=== PATIENT | male | born 1960 | race Caucasian/White ===

== ENCOUNTER 2017-07-09 08:06 | Emergency (ER) | payer MEDICAID, SELFPAY ==
[2017-07-09 08:06] VITALS: BP 118/74; PULSE 95; RESP 20; O2SAT 99
[2017-07-09 08:07] VITALS: BMI 25.0
--- NOTE | 2017-07-09 08:09 | XR_ITS ---
XR chest portable HISTORY: Chest pain, tobacco abuse ITS.REASON: cp ORDERING PHYSICIAN: Noe Diaz MD PATIENT AGE: 57 years COMPARISON: 01/14/2017 FINDINGS: Unremarkable cardiovascular structures. Coronary artery stent is present on the right. There is coarsening of the bronchovascular markings with slightly elevated left hemidiaphragm. Slight increased density is present in the lung bases slightly greater on the left. Cannot exclude infiltrate in the left lung base. Upper lobes are clear. No acute bony anomalies. IMPRESSION: 1. Chronic coarsening of bronchovascular markings consistent with smoking-related lung disease. 2. Possible left lower lobe infiltrate or atelectasis
[2017-07-09 08:10] VITALS: BP 123/92; PULSE 65; RESP 18; TEMP 36.8; O2SAT 98; BMI 26.9
--- NOTE | 2017-07-09 08:16 | HMH.EDCP ---
ED Disposition Clinical Impression: Chest pain Qualifiers: Chest pain type: precordial pain Qualified Code(s): R07.2 - Precordial pain Disposition: Left Against Medical Advice Condition on Discharge: Good Referrals: Laquita Yousif MD [Primary Care Provider] - - Critical Care Critical Care Time: No Attestation: On , the high probability of a clinically significant, sudden or life threatening deterioration of the following system(s) required my full and direct attention, intervention and personal management. The time I documented below is in addition to time spent performing reported procedures but includes the following listed in this critical care notation. Medical Decision Making - Medical Records Medical records reviewed: Yes: I reviewed the patient's medical records. Vital Signs: 07/09/17 08:06 07/09/17 08:10 07/09/17 08:27 Temperature 98.3 F Temperature Source Oral Pulse Rate Pulse Rate [Right Brachial] 95 H 65 66 Respiratory Rate 20 18 18 Blood Pressure Blood Pressure [Right Arm] 118/74 123/92 139/90 Blood Pressure Mean [Right Arm] 88 102 106 Blood Pressure Source Blood Pressure Source [Right Arm] Automatic Cuff Automatic Cuff Automatic Cuff Blood Pressure Position Blood Pressure Position [Right Arm] Supine Right Lateral Sitting 02 Sat by Pulse Oximetry 99 98 100 Oxygen Delivery Method Room Air Room Air Room Air 07/09/17 12:06 Temperature 98.1 F Temperature Source Pulse Rate 79 Pulse Rate [Right Brachial] Respiratory Rate 18 Blood Pressure 122/80 Blood Pressure [Right Arm] Blood Pressure Mean [Right Arm] Blood Pressure Source Automatic Cuff Blood Pressure Source [Right Arm] Blood Pressure Position Sitting Blood Pressure Position [Right Arm] 02 Sat by Pulse Oximetry Oxygen Delivery Method Room Air - Lab Data Lab Results 07/09/17 08:20: WBC 8.8, RBC 4.60, Hgb 14.3, Hct 43.3, MCV 94.1 H, MCH 31.0, MCHC 33.0, RDW 13.0, Plt Count 268, MPV 7.9, Neut % (Auto) 63.8, Lymph % (Auto) 28.6, [place] % (Auto) 4.1, Eos % (Auto) 2.6, Baso % (Auto) 0.9, Neut # (Auto) 5.6, Lymph # (Auto) 2.5, [place] # (Auto) 0.4, Eos # (Auto) 0.2, Baso # (Auto) 0.1 07/09/17 08:20: Sodium 138, Potassium 3.9, Chloride 104, Carbon Dioxide 26, Anion Gap 11.9, BUN 8, Creatinine 0.89, Estimated Creat Clear 106, Estimated GFR 89, Est GFR ( Amer) 107, Glucose 101, Calcium 8.3 L, Total Bilirubin 0.3, AST 12 L, ALT 25, Alkaline Phosphatase 101, Total Creatine Kinase 92, CK-MB (CK-2) 0.8, CK-MB (CK-2) Rel Index 0.9, Troponin I < 0.02, Total Protein 7.6, Albumin 3.6, Globulin 4.0 H, Albumin/Globulin Ratio 0.9 L, TSH 1.51 07/09/17 08:20: B-Natriuretic Peptide 12 Result diagrams: 07/09/17 08:20 07/09/17 08:20 Orders (Tests/Meds): ED MEDICATIONS Discontinued Medications Generic Name Dose Route Start Last Admin Trade Name Freq PRN Reason Stop Dose Admin Aspirin 324 mg 07/09/17 08:24 07/09/17 08:26 Aspirin 81mg Chewable Tablet PO 07/09/17 08:25 324 mg ONCE ONE Administration Diphenhydramine HCl 50 mg 07/09/17 11:44 Benadryl 50mg/1ml Vial IV 07/09/17 11:45 ONCE ONE Fentanyl Citrate 50 mcg 07/09/17 11:44 Fentanyl 100mcg/2ml Vial IV 07/10/17 11:44 Q3MINP PRN Moderate to Severe Pain Fentanyl Citrate 25 mcg 07/09/17 11:44 Fentanyl 100mcg/2ml Vial IV 07/10/17 11:44 Q3MINP PRN Moderate to Severe Pain Flumazenil 0.2 mg 07/09/17 11:44 Romazicon 0.1mg/Ml 5ml Vial IV 07/09/17 23:00 NEEDED PRN Sedation Heparin Sodium (Porcine) 10,000 unit 07/09/17 11:44 Heparin 1,000 Units/Ml 10ml Vial (Heel Finisher) IV 07/09/17 15:44 NEEDED PRN 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
[2017-07-09 08:27] VITALS: BP 139/90; PULSE 66; RESP 18; O2SAT 100
--- NOTE | 2017-07-09 08:29 | PC.NURSE ---
pt hypotensive, giving IV bolus at this time. When bp stabilizes, morphine will be given.
[2017-07-09 08:43] LABS: Basophils # 0.1 K/mm3 (0-0.2); Basophils % 0.9 % (0.1-2.0); Eosinophils # 0.2 K/mm3 (0.0-0.4); Eosinophils % 2.6 % (0.1-12.0); Hematocrit 43.3 % (42.0-52.0); Hemoglobin 14.3 g/dL (14.1-18.0); Lymphocytes # 2.5 K/mm3 (0.7-4.5); Lymphocytes % 28.6 K/mm3 (10-50); Mean Corpuscular Volume 94.1 fl (80-94); Mean Platelet Volume 7.9 fl (7.4-10.4); Monocytes # 0.4 K/mm3 (0.1-1.0); Monocytes % 4.1 % (1.7-9.3); Neutrophils # 5.6 K/mm3 (1.8-7.8); Neutrophils % 63.8 % (37.0-80.0); Platelet Count 268 K/mm3 (142-424); White Blood Count 8.8 K/mm3 (4.8-10.8)
[2017-07-09 09:06] LABS: Alanine Aminotransferase 25 U/L (12-78); Albumin Level 3.6 gm/dL (3.4-5.0); Albumin/Globulin Ratio 0.9 (1.1-1.8); Alkaline Phosphatase 101 U/L (46-116); Anion Gap 11.9 mEq/L (5-15); Aspartate Amino Transferase 12 U/L (15-37); Bilirubin,Total 0.3 mg/dL (0.2-1.0); Blood Urea Nitrogen 8 mg/dL (7-18); CKMB Relative Index 0.9 U/L (0-4.0); Calcium 8.3 mg/dL (8.5-10.1); Carbon Dioxide 26 mmol/L (21.0-32.0); Chloride 104 mmol/L (98-107); Creatine Kinase 92 U/L (39-308); Creatine Kinase MB 0.8 mg/ml (0.0-3.6); Creatinine Clearance Estimated 106 mL/min (0-300); Creatinine,Serum 0.89 mg/dL (0.70-1.30); Estimated Glomerular Filt Rate 89 ml/min (>60); GFR (African American) 107 ML/MIN (>60); Glucose 101 mg/dL (74-106); Potassium 3.9 mmoL/L (3.5-5.1); Sodium 138 mmol/L (136-145); Thyroid Stimulating Hormone 1.51 uIU/ml (0.358-3.740); Total Protein,Serum 7.6 gm/dL (6.4-8.2); Troponin I < 0.02 ng/ml (0.00-0.06)
--- NOTE | 2017-07-09 10:29 | HMH.CARDCON2 ---
History of Present Illness Consult date: 07/09/17 Consult reason: chest pain Chief complaint: chest pain History of present illness: 57-year-old white male with history of coronary artery disease and multiple stents placed last year and continued tobacco use presented to the emergency department today for recurrent episodes of substernal chest burning sensation with radiation into the neck. Symptoms may come on both with activity and at rest and resolve after 1-2 minutes. No radiation of symptoms into the arm. Questionable difficulty swallowing recently. EKG is sinus without any acute change. Initial troponins have returned normal. Cardiology consulted for evaluation. Of note, patient's symptoms prior to his coronary stenting last year did not involve chest pain but rather upper back and neck discomfort the patient does have some chronic neck pain. Review of Systems - *Cardiovascular Reports chest pain - *Respiratory Reports shortness of breath with activity - *Gastrointestinal Reports heartburn - *Genitourinary Comments: Isolated episode of blood in the urine 2-3 weeks ago no recurrence. Patient has a history of kidney stones but he relates no discomfort to suggest that at that point. - *Neurologic Denies numbness, Denies weakness [facility] History Medical History: Reports:: Coronary Artery Disease, Hyperlipidemia, Hypertension Other Surgeries: Yes: Other ([facility]) - *Social History Educational Level: Completed High School Smoking Status: Current every day smoker Tobacco Type: cigarettes # Packs/Day (cigarettes): 2 Alcohol Intake: never - Psychiatric History Expresses thoughts of harming self/others: None Suicide Plan Description: No Plan *Family Hx:: Diabetes, Coronary Artery Disease Meds Home Medications Medication Instructions Recorded Confirmed Type aspirin 81 mg tablet,delayed 81 mg PO ONCE 06/21/17 07/09/17 History release atorvastatin 80 mg tablet 80 mg PO ONCE 06/21/17 07/09/17 History carvedilol 3.125 mg tablet 3.125 mg PO BID 06/21/17 07/09/17 History clopidogrel 75 mg tablet 75 mg PO ONCE 06/21/17 07/09/17 History lisinopril 5 mg tablet 5 mg PO ONCE 06/21/17 07/09/17 History Allergies Allergy/AdvReac Type Severity Reaction Status Date / Time No Known Allergies Allergy Verified 07/09/17 08:07 Exam Vital signs and Labs for Last 24 Hours: Temp Pulse Resp BP Pulse Ox 98.3 F 66 18 139/90 100 07/09/17 08:10 07/09/17 08:27 07/09/17 08:27 07/09/17 08:27 07/09/17 08:27 Laboratory Results - last 24 hr 07/09/17 08:20: WBC 8.8, RBC 4.60, Hgb 14.3, Hct 43.3, MCV 94.1 H, MCH 31.0, MCHC 33.0, RDW 13.0, Plt Count 268, MPV 7.9, Neut % (Auto) 63.8, Lymph % (Auto) 28.6, [place] % (Auto) 4.1, Eos % (Auto) 2.6, Baso % (Auto) 0.9, Neut # (Auto) 5.6, Lymph # (Auto) 2.5, [place] # (Auto) 0.4, Eos # (Auto) 0.2, Baso # (Auto) 0.1 07/09/17 08:20: Sodium 138, Potassium 3.9, Chloride 104, Carbon Dioxide 26, Anion Gap 11.9, BUN 8, Creatinine 0.89, Estimated Creat Clear 106, Estimated GFR 89, Est GFR ( Amer) 107, Glucose 101, Calcium 8.3 L, Total Bilirubin 0.3, AST 12 L, ALT 25, Alkaline Phosphatase 101, Total Creatine Kinase 92, CK-MB (CK-2) 0.8, CK-MB (CK-2) Rel Index 0.9, Troponin I < 0.02, Total Protein 7.6, Albumin 3.6, Globulin 4.0 H, Albumin/Globulin Ratio 0.9 L, TSH 1.51 07/09/17 08:20: B-Natriuretic Peptide 12 I & O for Last 24 hours: Intake & Output 07/06/17 07/07/17 07/08/17 07/09/17 11:59 11:59 11:59 11:59 Weight 177 lb - *Routine Neck Exam Absent: JVD, carotid bruit - *Routine Respiratory Exam Present: CTA bilaterally - *Routine Cardiovascular Exam Present: RRR. Absent: murmur, gallop, rubs - *Routine Extremities Exam Absent: edema - *Routine Neurological Exam Present: alert, oriented X3, moving all extremities Results 07/09/17 08:20 07/09/17 08:20 Cardiac Enzymes 07/09/17 07/09/17 Range/Units 08:20 08:20 AST 12 L
--- NOTE | 2017-07-09 10:32 | P.CONS_ITS ---
History of Present Illness Consult date: 07/09/17 Consult reason: chest pain Chief complaint: chest pain History of present illness: 57-year-old white male with history of coronary artery disease and multiple stents placed last year and continued tobacco use presented to the emergency department today for recurrent episodes of substernal chest burning sensation with radiation into the neck. Symptoms may come on both with activity and at rest and resolve after 1-2 minutes. No radiation of symptoms into the arm. Questionable difficulty swallowing recently. EKG is sinus without any acute change. Initial troponins have returned normal. Cardiology consulted for evaluation. Of note, patient's symptoms prior to his coronary stenting last year did not involve chest pain but rather upper back and neck discomfort the patient does have some chronic neck pain. Review of Systems - *Cardiovascular Reports chest pain - *Respiratory Reports shortness of breath with activity - *Gastrointestinal Reports heartburn - *Genitourinary Comments: Isolated episode of blood in the urine 2-3 weeks ago no recurrence. Patient has a history of kidney stones but he relates no discomfort to suggest that at that point. - *Neurologic Denies numbness, Denies weakness [facility] History Medical History: Reports:: Coronary Artery Disease, Hyperlipidemia, Hypertension Other Surgeries: Yes: Other ([facility]) - *Social History Educational Level: Completed High School Smoking Status: Current every day smoker Tobacco Type: cigarettes # Packs/Day (cigarettes): 2 Alcohol Intake: never - Psychiatric History Expresses thoughts of harming self/others: None Suicide Plan Description: No Plan *Family Hx:: Diabetes, Coronary Artery Disease Meds Home Medications Medication Instructions Recorded Confirmed Type aspirin 81 mg tablet,delayed 81 mg PO ONCE 06/21/17 07/09/17 History release atorvastatin 80 mg tablet 80 mg PO ONCE 06/21/17 07/09/17 History carvedilol 3.125 mg tablet 3.125 mg PO BID 06/21/17 07/09/17 History clopidogrel 75 mg tablet 75 mg PO ONCE 06/21/17 07/09/17 History lisinopril 5 mg tablet 5 mg PO ONCE 06/21/17 07/09/17 History Allergies Allergy/AdvReac Type Severity Reaction Status Date / Time No Known Allergies Allergy Verified 07/09/17 08:07 Exam Vital signs and Labs for Last 24 Hours: Temp Pulse Resp BP Pulse Ox 98.3 F 66 18 139/90 100 07/09/17 08:10 07/09/17 08:27 07/09/17 08:27 07/09/17 08:27 07/09/17 08:27 Laboratory Results - last 24 hr 07/09/17 08:20: WBC 8.8, RBC 4.60, Hgb 14.3, Hct 43.3, MCV 94.1 H, MCH 31.0, MCHC 33.0, RDW 13.0, Plt Count 268, MPV 7.9, Neut % (Auto) 63.8, Lymph % (Auto) 28.6, [place] % (Auto) 4.1, Eos % (Auto) 2.6, Baso % (Auto) 0.9, Neut # (Auto) 5.6 , Lymph # (Auto) 2.5, [place] # (Auto) 0.4, Eos # (Auto) 0.2, Baso # (Auto) 0.1 07/09/17 08:20: Sodium 138, Potassium 3.9, Chloride 104, Carbon Dioxide 26, Anion Gap 11.9, BUN 8, Creatinine 0.89, Estimated Creat Clear 106, Estimated GFR 89, Est GFR ( Amer) 107, Glucose 101, Calcium 8.3 L, Total Bilirubin 0.3, AST 12 L, ALT 25, Alkaline Phosphatase 101, Total Creatine Kinase 92, CK- MB (CK-2) 0.8, CK-MB (CK-2) Rel Index 0.9, Troponin I < 0.02, Total Protein 7.6 , Albumin 3.6, Globulin 4.0 H, Albumin/Globulin Ratio 0.9 L, TSH 1.51 07/09/17 08:20: B-Natriuretic Peptide 12 I & O for Last 24 hours: Intake & Output 01
[2017-07-09 12:06] VITALS: BP 122/80; PULSE 79; RESP 18; TEMP 36.7; O2SAT 98
== END 2017-07-09 12:06 | disposition left against medical advice (07) ==
PROVIDERS: Internal Medicine; Emergency Provider Emergency Medicine; Family Provider Family Medicine; PCP Family Medicine
DX: R07.2 Precordial pain (principal); Z53.21 Procedure and treatment not carried out due to patient leaving prior to being seen by health care provider
CPT/HCPCS: 71045; 80053; 82550; 82553; 83880; 84443; 84484; 85025; 93005; 99284

== ENCOUNTER → 2019-02-01 09:54 | Outpatient (CLI) | payer MEDICAID, SELFPAY ==
[2019-02-01 12:30] LABS: Alanine Aminotransferase 17 U/L (12-78); Albumin Level 3.8 gm/dL (3.4-5.0); Alkaline Phosphatase 99 U/L (46-116); Aspartate Amino Transferase 15 U/L (15-37); Bilirubin,Direct 0.1 mg/dL (0.0-0.2); Bilirubin,Indirect 0.2 mg/dL (0.0-0.9); Bilirubin,Total 0.3 mg/dL (0.2-1.0); Chol/HDL Ratio 5.8 (1-3.5); Cholesterol 162 mg/dL (140-200); HDL Cholesterol 28 mg/dL (27-67); LDL Cholesterol 99 mg/dL (0-130); Total Protein,Serum 7.4 gm/dL (6.4-8.2); Triglycerides 175 mg/dL (30-200); VLDL Cholesterol 35 mg/dL (0-40)
== END ==
PROVIDERS: Visit Provider Urology
DX: E78.5 Hyperlipidemia, unspecified (principal); I11.9 Hypertensive heart disease without heart failure; F17.200 Nicotine dependence, unspecified, uncomplicated; I25.10 Atherosclerotic heart disease of native coronary artery without angina pectoris; I71.4 Abdominal aortic aneurysm, without rupture; R06.09 Other forms of dyspnea
CPT/HCPCS: 36415; 80061; 80076

== ENCOUNTER → 2019-02-08 07:48 | Outpatient (CLI) | payer MEDICAID, SELFPAY ==
--- NOTE | 2019-02-08 07:50 | CA_ITS ---
APPROVED REPORT Wheel Presser: JEREMY Laterality: Bilateral Study Quality: Good Indications: Dizziness and hx of PAD Risk Factors Hypertension: Hyperlipidemia Smoking Doppler Spectral Velocity Analysis ECA (R) 86.20/15.90 cm/s ECA (L) 84.10/20.60 cm/s dICA (R) 74.60/36.90 cm/s dICA (L) 82.50/34.90 cm/s Zina (R) 82.30/28.10 cm/s Zina (L) 50.70/21.10 cm/s pICA (R) 59.20/20.60 cm/s pICA (L) 53.40/18.80 cm/s dCCA (R) 69.90/22.80 cm/s dCCA (L) 69.50/29.30 cm/s pCCA (R) 67.60/21.20 cm/s pCCA (L) 69.50/20.10 cm/s Vert (R) 56.90/21.80 cm/s Vert (L) 44.60/18.30 cm/s ICA/CCA 1.18 ICA/CCA 1.19 Findings Duplex evaluation demonstrates stenosis of the right proximal internal carotid artery in the range of 20-49% with PSV <140 cm/sec, EDV <100 cm/sec, and IC/CC Ratio <4.0.Duplex evaluation demonstrates stenosis of the left proximal internal carotid artery <20% with PSV <140 cm/sec, EDV <100 cm/sec, and IC/CC Ratio <4.0. Antegrade flow seen bilateral vertebral arteries. Conclusion Duplex evaluation demonstrates stenosis of the right proximal internal carotid artery in the range of 20-49% with PSV <140 cm/sec, EDV <100 cm/sec, and IC/CC Ratio <4.0.Duplex evaluation demonstrates stenosis of the left proximal internal carotid artery <20% with PSV <140 cm/sec, EDV <100 cm/sec, and IC/CC Ratio <4.0. Antegrade flow seen bilateral vertebral arteries. Electronically signed by : Edmond Calloway MD 02/08/2019 15:57:32
--- NOTE | 2019-02-08 07:52 | US_ITS ---
PROCEDURE: US AORTA CLINICAL INDICATION: Dizziness and hx of PAD with AAA COMPARISON: ABDPELWO CT abdomen pelvis wo con from 02/24/2018 FINDINGS: There is mild fusiform dilatation of the mid abdominal aorta at 3.3 x 2.8 cm. The aorta tapers at the bifurcation. Proximal common iliacs are unremarkable. Mild amount of plaque noted IMPRESSION: Mild fusiform dilatation of the mid abdominal aorta at 3.3 cm Dictated by: Edmond Calloway MD 02/08/2019 18:26 <Electronically signed by Edmond Calloway MD in [place]> 02/08/2019 18:26
== END ==
PROVIDERS: Visit Provider Physician Assistant
DX: I73.9 Peripheral vascular disease, unspecified (principal); I71.4 Abdominal aortic aneurysm, without rupture; R42 Dizziness and giddiness; E78.5 Hyperlipidemia, unspecified; I11.9 Hypertensive heart disease without heart failure; I25.10 Atherosclerotic heart disease of native coronary artery without angina pectoris; F17.200 Nicotine dependence, unspecified, uncomplicated
CPT/HCPCS: 76770; 93880

== ENCOUNTER → 2020-09-20 07:54 | Outpatient (CLI) | payer MEDICAID, SELFPAY ==
--- NOTE | 2020-09-20 07:54 | CA_ITS ---
APPROVED REPORT Airplane Gas Tank Liner Assembler: Beatris Santiago RVT Laterality: Bilateral Study Quality: Good Indications: Carotid stenosis Risk Factors Hypertension: Hyperlipidemia Smoking Doppler Spectral Velocity Analysis ECA (R) 123.00/21.40 cm/s ECA (L) 101.60/21.40 cm/s dICA (R) 87.70/35.30 cm/s dICA (L) 98.40/32.10 cm/s Zina (R) 92.00/39.60 cm/s Zina (L) 120.80/41.70 cm/s pICA (R) 85.50/35.30 cm/s pICA (L) 72.70/24.60 cm/s dCCA (R) 73.80/21.40 cm/s dCCA (L) 73.80/28.90 cm/s pCCA (R) 85.50/26.70 cm/s pCCA (L) 68.40/22.50 cm/s Vert (R) 43.80/12.80 cm/s Vert (L) 44.90/18.20 cm/s ICA/CCA 1.25 ICA/CCA 1.64 Findings Study suggests 20-49% stenosis of the right internal cartoid artery. Study suggests less than 20% stenosis of the left internal cartoid artery. Antegrade flow seen bilateral vertebral arteries. Conclusion Study suggests 20-49% stenosis of the right internal cartoid artery. Study suggests less than 20% stenosis of the left internal cartoid artery. Antegrade flow seen bilateral vertebral arteries. Electronically signed by : Edmond Calloway MD 09/20/2020 18:21:29
--- NOTE | 2020-09-20 08:14 | XR_ITS ---
PROCEDURE: XR CHEST 2V CLINICAL HISTORY: tob use Heart disease COMPARISON: CT CTAC CTA-CHEST from 12/31/2016 CR CXR1 CHEST-PORTABLE from 12/31/2016 CR CXR CHEST(2 VIEWS-NOT PORTABLE) from 01/14/2017 CR CXR1VP XR chest portable from 07/09/2017 FINDINGS: The cardiomediastinal silhouette and pulmonary vascularity are within normal limits. Coronary artery stents are present. Lungs are clear bilaterally. No acute bony abnormalities. IMPRESSION: No acute findings. Dictated by: Edmond Calloway MD 09/20/2020 09:16 Edmond Calloway MD in [place] 09/20/2020 09:16
--- NOTE | 2020-09-20 08:14 | US_ITS ---
PROCEDURE: US ABD. AORTA SCREENING CLINICAL INDICATION: AAA Evaluate for abdominal aortic aneurysm there is a fusiform abdominal aortic aneurysm COMPARISON: CT ABDPELWO CT abdomen pelvis wo con from 02/24/2018 FINDINGS: There is a fusiform mid abdominal aortic aneurysm which measures 3.6 x 3.4 cm AP and transverse. There is a mild amount plaque posteriorly. The distal abdominal aorta is 1.7 by 1.6 cm. Common iliacs are unremarkable. IMPRESSION: Fusiform mid abdominal aortic aneurysm at 3.6 x 3.4 cm which appears slightly larger compared to the CT scan of 02/24/2018 with a maximum AP dimension was 3.2 cm. Dictated by: Edmond Calloway MD 09/20/2020 09:26 Edmond Calloway MD in [place] 09/20/2020 09:26
== END ==
PROVIDERS: Visit Provider Internal Medicine
DX: I71.4 Abdominal aortic aneurysm, without rupture (principal); Z13.6 Encounter for screening for cardiovascular disorders; R42 Dizziness and giddiness; I11.9 Hypertensive heart disease without heart failure; I73.9 Peripheral vascular disease, unspecified; I25.10 Atherosclerotic heart disease of native coronary artery without angina pectoris; E78.5 Hyperlipidemia, unspecified; F17.200 Nicotine dependence, unspecified, uncomplicated
CPT/HCPCS: 71046; 76705; 93880

== ENCOUNTER → 2021-03-03 09:02 | Outpatient (CLI) | payer MEDICAID, SELFPAY ==
--- NOTE | 2021-03-03 09:08 | US_ITS ---
PROCEDURE: US AORTA CLINICAL INDICATION: AAA COMPARISON: US US AORTA from 02/08/2019 US US ABD. AORTA SCREENING from 09/20/2020 FINDINGS: There is fusiform dilatation of the mid abdominal aorta measuring 3.5 cm AP and 3.5 cm transverse. Proximal common iliacs have an unremarkable appearance. IMPRESSION: Fusiform mid abdominal aortic aneurysm 3.5 by 3.5 cm slightly larger in the transverse plane compared to the previous exam previously measuring 3.6 x 3.2 cm Dictated by: Edmond Calloway MD 03/03/2021 14:06 Edmond Calloway MD in [place] 03/03/2021 14:06
== END ==
PROVIDERS: Visit Provider Internal Medicine
DX: I71.4 Abdominal aortic aneurysm, without rupture (principal)
CPT/HCPCS: 76770

== ENCOUNTER → 2021-03-13 12:33 | Outpatient (CLI) | payer MEDICAID, SELFPAY ==
--- NOTE | 2021-03-13 13:16 | XR_ITS ---
PROCEDURE: XR CHEST 2V CLINICAL HISTORY: dyspnea COMPARISON: CT CTAC CTA-CHEST from 12/31/2016 CR CXR CHEST(2 VIEWS-NOT PORTABLE) from 01/14/2017 CR CXR1VP XR chest portable from 07/09/2017 CR XR CHEST 2V from 09/20/2020 FINDINGS: The cardiomediastinal silhouette and pulmonary vascularity are within normal limits. There is mild aortic tortuosity. Coronary artery stents are noted. The lungs are clear without infiltrates, suspicious nodules, or pleural effusions. No acute bony abnormalities. IMPRESSION: No acute findings. Dictated by: Dr. Lucien Bliss MD 03/13/2021 13:56 Dr. Lucien Bliss MD in [place] 03/13/2021 13:56
== END ==
PROVIDERS: Visit Provider Urology
DX: R06.00 Dyspnea, unspecified (principal)
CPT/HCPCS: 71046; 94060; 94640

== ENCOUNTER → 2021-03-17 06:57 | Outpatient (CLI) | payer MEDICAID, SELFPAY ==
--- NOTE | 2021-03-17 06:58 | NM_ITS ---
APPROVED REPORT Exam: Nuclear Stress Test Indication: CAD, SOA, High cholesterol, Tobacco use Patient Location: Outpatient Stress Tech: Asmita Roblero [place] Tech:Sana Howard, ARRT, RT (R)(N) Ht: 5 ft 7 in Wt: 172 lbs HR: 66 bpm BP: 115/70 mmHg BSA: 1.90 m2 BMI: 26.9 History: CAD, SOA, High cholesterol, Tobacco use Procedure: Patient received a 0.4 mg of intravenous Lexiscan, resting heart rate 66 bpm, resting blood pressure 115/70 mmHg, with Lexiscan maximum heart rate achived was 88 bpm which is Less than 85 % of the maximum predicted heart rate and blood pressure was 127/77 mmHg. With Lexiscan, patient denied any complaint of chest pain. Electrocardiogram Resting electrocardiogram showed sinus rhythm, with Lexiscan there is less than 1.[address] segment depression noted from the baseline EKG. The EKG portion of the Lexiscan is nondiagnostic. Cardiac Stress and Resting SPECT Images: Cardiac Stress and Resting SPECT images were obtained using technetium 99m Myoview 29.6 mCi stress and 10.48 mCi at rest. Gated SPECT for analysis of segmental wall motion and calculation of the ejection fraction also done. Prone images were also obtained. Cardiac stress and resting SPECT images show reversible ischemia involving the anteroseptal wall, computer derived ejection fraction is 41% with mild anteroseptal wall hypokinesis, right ventricle is normal size and contractility. Conclusion: 1. The EKG portion of the Lexiscan is nondiagnostic. 2. Scintigraphic evidence of mild reversible ischemia involving the anteroseptal wall, computer derived ejection fraction is 41% with segmental wall motion abnormality described above, right ventricle is normal size and contractility. 3. Abnormal Lexiscan Myoview study. Electronically signed by : Haresh Kunz MD 03/17/2021 21:22:07
--- NOTE | 2021-03-17 06:58 | CA_ITS ---
APPROVED REPORT EXAM: Comprehensive 2D, Doppler, and color-flow Echocardiogram [facility] Specialist: Venus Slater RDCS Ht: 5 ft 9 in Wt: 172lbs BSA: 1.94 BP: 126/82 mmHg Indications: SOA,CAD, 2D Dimensions LVOT 1.87 cm (M/F) 1.5-2.5 M-Mode Dimensions RVDd 2.54 cm (0.9-2.6) LA Diam 3.35 cm (1.9-4.0) LVDd 5.35 cm (3.5-5.7) Ao Diam 2.97 cm (2.0-3.7) LVDs 4.09 cm (3.5-5.7) IVSd 0.64 cm (0.6-1.1) PWd 0.99 cm (0.6-1.1) EF (Teich) 46.60% FS 23.60% EDV (Teich) 138.30 mL TAPSE 2.30 (<1.7) ESV (Teich) 73.80 mL LV Diastology E Decel Time 180.00 (160-240 msec) E/A Ratio 1.0 MED E' 8.60 (< 7 cm/sec) E'/MED E' Ratio 7.28 (>14) LAT E' 11.10 (<10 cm/sec) E/LAT E' Ratio 5.64 (>14) Mitral Valve MV E Max Adama. 63.00 (40-130 cm/s) MV A Velocity 61.00 (40-130 cm/s) E/A Ratio 1.02 MV Decel. Time 180.00 (160-240 ms) MV PHT 53.00 ms Left Ventricle Left atrium is mildly enlarged, left ventricle is normal size, there is no concentric left ventricular hypertrophy, visually estimated ejection fraction approximately 50%, there appears to be mild anteroseptal wall hypokinesis. Diastolic parameters are inconclusive. Right Ventricle Right atrium and right ventricle are normal size and contractility. Aortic Valve Aortic valve is thickened and calcified without aortic stenosis or aortic insufficiency. Mitral Valve Mitral valve is grossly normal, there is mild mitral regurgitation. Tricuspid Valve Tricuspid valve grossly normal, there is mild tricuspid regurgitation, tricuspid regurgitation jet velocity is inadequate for calculation of the right ventricular systolic pressure. Pulmonic Valve Pulmonic valve is poorly visualized. Great Vessels Aortic root is normal size. Inferior vena cava is normal size with normal inspiratory collapse. Pericardium No significant pericardial effusion noted. Conclusion 1. Normal left ventricular size, visually estimated ejection fraction 50% with segmental wall motion abnormality described above, diastolic parameters are inconclusive in the study. 2. Mild mitral and tricuspid regurgitation. 3. No significant pericardial effusion noted. 4. Inferior vena cava is normal size with normal inspiratory collapse. Electronically signed by : Haresh Kunz MD 03/17/2021 21:27:32
--- NOTE | 2021-03-17 06:58 | CA_ITS ---
APPROVED REPORT Exam: Pharmacologic Technologist: Asmita Roblero Ht: 5 ft 8 in Wt: 172 lbs BSA: 1.92 m2 HR: 56 bpm BP: 115/70 mmHg Medical History Medications: Plavix,,,,, ApiRIN,,,,, Stress Test Details Test: LEXISCAN HR Resting HR: 66 bpm Max Heart Rate (APMHR): 161.257607 bpm Max HR Achieved: 88 bpm Target HR (85% APMHR): 136.178707 bpm % of APMHR: 54.66 BP Resting BP: 115/70 mmHg Max BP: 127/77 mmHg ECG Clinical Exercise duration: 04:14 min Highest Stage Achieved: Stress ECG Conclusion Symptoms: Shortness of air with Lexiscan. No chest pain. Arrhythmias/Ectopy: None ST-T Changes: < 1.[address] segment changes. Test Summary REST 04:43 . . 66 . 115/ 70 . . Stage 1 01:00 . . 77 . . . . Stage 2 01:00 . . 77 . 122/ 77 . . Stage 3 01:00 . . 80 . 127/ 77 . . Stage 4 01:00 . . 81 . 125/ 79 . . Stage 4 01:14 . . 67 . 125/ 79 . Stop exercise at 04:14 RECOVERY 01:00 . . 66 . 115/ 77 . . RECOVERY 02:00 . . 63 . 112/ 73 . . RECOVERY 02:09 . . 72 . 112/ 73 . . Electronically signed by : Haresh Kunz MD 03/17/2021 21:11:58
--- NOTE | 2021-03-17 08:49 | HMH.ITSHM ---
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 []CLOPIDOGREL ASA
== END ==
PROVIDERS: PCP Internal Medicine; Visit Provider Urology
DX: R06.00 Dyspnea, unspecified (principal)
CPT/HCPCS: 78452; 93017; 93306; A9502; J2785

== ENCOUNTER → 2021-04-12 10:10 | Outpatient (CLI) | payer MEDICAID, SELFPAY ==
[2021-04-12 11:11] LABS: Basophils # 0.1 K/mm3 (0-0.2); Basophils % 1.3 % (0.1-2.0); Eosinophils # 0.3 K/mm3 (0.0-0.4); Eosinophils % 3.8 % (0.1-12.0); Hematocrit 45.6 % (42.0-52.0); Lymphocytes # 2.4 K/mm3 (0.7-4.5); Mean Corpuscular HGB Conc 32.9 g/dL (31.8-35.4); Mean Corpuscular Hemoglobin 31.8 pg (27.0-31.2); Mean Corpuscular Volume 96.6 fl (80-94); Mean Platelet Volume 8.6 fl (7.4-10.4); Monocytes # 0.3 K/mm3 (0.1-1.0); Monocytes % 4.8 % (1.7-9.3); Neutrophils # 3.9 K/mm3 (1.8-7.8); Neutrophils % 56.1 % (37.0-80.0); Platelet Count 291 K/mm3 (142-424); Red Blood Count 4.72 M/mm3 (4.60-6.20); Red Cell Distribution Width 13.5 % (11.5-17.5)
[2021-04-12 13:01] LABS: Chloride 107 mmol/L (98-107); Potassium 4.9 mmoL/L (3.5-5.1); Sodium 139 mmol/L (136-145)
[2021-04-12 13:04] LABS: Anion Gap 12.9 mEq/L (5-15); Blood Urea Nitrogen 8 mg/dl (9-20); Carbon Dioxide 24 mmol/L (22.0-30.0); Estimated Glomerular Filt Rate 99 ml/min (>60); GFR (African American) 120 ML/MIN (>60); Glucose 106 mg/dl (74-100)
== END ==
PROVIDERS: Visit Provider Physician Assistant
DX: Z01.812 Encounter for preprocedural laboratory examination (principal); Z11.52 Encounter for screening for COVID-19; I20.8 Other forms of angina pectoris; R42 Dizziness and giddiness; I11.9 Hypertensive heart disease without heart failure; E78.5 Hyperlipidemia, unspecified; I63.9 Cerebral infarction, unspecified; I71.4 Abdominal aortic aneurysm, without rupture; I73.9 Peripheral vascular disease, unspecified; F17.200 Nicotine dependence, unspecified, uncomplicated; Z72.0 Tobacco use; Z95.5 Presence of coronary angioplasty implant and graft
CPT/HCPCS: 36415; 80048; 85025; C9803; U0003; U0005

== ENCOUNTER → 2021-04-14 08:03 | Day surgery (SDC) | payer MEDICAID, SELFPAY ==
--- NOTE | 2021-04-14 08:07 | CA_ITS ---
APPROVED REPORT Pole Incisor Operator: Beatris Santiago RVT Laterality: Bilateral Study Quality: Good Indications: dizziness Risk Factors Smoking Doppler Spectral Velocity Analysis ECA (R) 129.40/22.50 cm/s ECA (L) 69.50/18.20 cm/s dICA (R) 74.90/33.10 cm/s dICA (L) 74.90/31.00 cm/s Zina (R) 85.50/31.00 cm/s Zina (L) 103.70/39.60 cm/s pICA (R) 68.40/20.30 cm/s pICA (L) 63.10/28.90 cm/s dCCA (R) 62.00/18.20 cm/s dCCA (L) 67.40/22.50 cm/s pCCA (R) 63.10/16.00 cm/s pCCA (L) 61.00/23.50 cm/s Vert (R) 41.70/11.80 cm/s Vert (L) 41.10/14.60 cm/s ICA/CCA 1.38 ICA/CCA 1.54 Findings Study suggests 20-49% stenosis of the right internal cartoid artery. Study suggests less than 20% stenosis of the left internal cartoid artery. Antegrade flow seen bilateral vertebral arteries. Conclusion Study suggests 20-49% stenosis of the right internal cartoid artery. Study suggests less than 20% stenosis of the left internal cartoid artery. Antegrade flow seen bilateral vertebral arteries. Electronically signed by : Edmond Calloway MD 04/14/2021 17:42:03
[2021-04-14 08:08] VITALS: BMI 26.3
[2021-04-14 08:45] VITALS: BP 129/86; PULSE 69; RESP 19; TEMP 36.8; O2SAT 96
[2021-04-14 08:47] VITALS: PULSE 68
== END ==
PROVIDERS: Visit Provider Internal Medicine
DX: I11.9 Hypertensive heart disease without heart failure (principal); I25.118 Atherosclerotic heart disease of native coronary artery with other forms of angina pectoris
CPT/HCPCS: 93880

== ENCOUNTER 2021-04-15 08:48 | Day surgery (SDC) | payer MEDICAID, SELFPAY ==
[2021-04-15] VITALS (13 sets, daily range): BP systolic 99–145; BP diastolic 59–86; PULSE 55–80; RESP 13–19; TEMP 36.6–36.8; O2SAT 92–98; BMI 26.9
--- NOTE | 2021-04-15 07:05 | IR_ITS ---
APPROVED REPORT Patient Location: Outpatient Livestock Dealer: WILDA Hair RT (R) PROCEDURES Left heart catheterization Left ventriculogram Selective coronary angiogram INDICATION High risk abnormal Myoview, Coronary disease, Informed consent was obtained prior to the procedure. COMPLICATIONS NONE Estimated Blood Loss: LESS THAN 10 ML TECHNIQUE One percent lidocaine used to anesthetize the right anterior aspect of the wrist. The right radial artery was accessed via the Seldinger technique. A 6 Yi sheath was placed in the right radial artery. 2.5 mg of verapamil, 800 mcg of nitroglycerin, 1mg Lidocaine and 5000 U Heparin were given through the arterial sheath. The Poppa catheter was also used to perform left heart catheterization, left ventriculogram and selective coronary angiogram. At the end of the procedure the sheath was removed good hemostasis was achieved using Traclet band, patient was transferred to the postop holding area in stable condition. ANGIOGRAPHIC RESULTS The left main artery has an ostial smooth 20% stenosis The left anterior descending artery Has proximal mid vessel 20 to 30% stenoses. The mid LAD then has a 30 to 40% stenosis. A moderate to large first diagonal artery has mild 10 to 20% stenoses. The stent within the mid LAD is widely patent free of in-stent restenosis with excellent proximal distal transitioning The circumflex artery Is a nondominant vessel and has a stent in the proximal through mid segment which is widely patent with minimal mid vessel in-stent restenosis. The second obtuse marginal artery has an ostial 40% and proximal 30% stenosis The right coronary artery Is a dominant vessel and has stents in the proximal mid and distal segment. The stent have diffuse 20 to 30% in-stent restenosis in the mid segment and distally there are additional 30% stenoses. The posterior descending artery has a smooth 70% in-stent restenotic lesion on the posterior lateral branch has 40% proximal stenosis The LEMONS ventriculogram reveals Reduced at 45% The left ventricular end-diastolic pressure 15 mmHg IMPRESSION Coronary disease as described above Reduced ejection fraction Mild elevated LVEDP PLAN 1. At this point I recommend medical management. The abnormal Myoview was not in the distribution of the posterior descending artery stenosis. This is also at a bifurcating area and would require bifurcating stents which would only further increase the likelihood of in-stent restenosis 2. Aggressive risk factor modification Electronically signed by : Freddy Yadav MD 04/15/2021 12:44:20
== END 2021-04-15 13:56 | disposition home or self-care (01) ==
LOC: CATHLAB 08:49
PROVIDERS: Visit Provider Internal Medicine
DX: E78.5 Hyperlipidemia, unspecified (principal); F17.210 Nicotine dependence, cigarettes, uncomplicated; I11.9 Hypertensive heart disease without heart failure; I25.118 Atherosclerotic heart disease of native coronary artery with other forms of angina pectoris; I71.4 Abdominal aortic aneurysm, without rupture; Z95.5 Presence of coronary angioplasty implant and graft; T82.855A Stenosis of coronary artery stent, initial encounter; Y83.1 Surgical operation with implant of artificial internal device as the cause of abnormal reaction of the patient, or of later complication, without mention of misadventure at the time of the procedure; Z79.01 Long term (current) use of anticoagulants; Z79.899 Other long term (current) drug therapy; I42.9 Cardiomyopathy, unspecified
CPT/HCPCS: 93458; 99152; C1725; C1769; J1644; Q9967

== ENCOUNTER → 2021-04-22 09:08 | Outpatient (CLI) | payer MEDICAID, SELFPAY ==
[2021-04-22 10:03] LABS: Alanine Aminotransferase 14 U/L (12-78); Albumin Level 4.5 g/dl (3.5-5.0); Alkaline Phosphatase 78 U/L (38-126); Aspartate Amino Transferase 21 U/L (17-59); Bilirubin,Direct 0.1 mg/dl (0.0-0.4); Bilirubin,Indirect 0.2 mg/dL (0.0-0.9); Bilirubin,Total 0.3 mg/dl (0.2-1.3); Bilirubin,Unconjugated 0.2 mg/dL (0.0-1.1); Cholesterol 129 mg/dl (140-200); HDL Cholesterol 43 mg/dl (40-60); Total Protein,Serum 7.3 g/dl (6.3-8.2); Triglycerides 106 mg/dl (30-150); VLDL Cholesterol 21 mg/dL (0-40)
[2021-04-22 10:14] LABS: Direct LDL Cholesterol 97.94 mg/dL (100-129)
== END ==
PROVIDERS: Visit Provider Urology
DX: R42 Dizziness and giddiness (principal); I25.10 Atherosclerotic heart disease of native coronary artery without angina pectoris; I11.9 Hypertensive heart disease without heart failure; E78.5 Hyperlipidemia, unspecified; I71.4 Abdominal aortic aneurysm, without rupture; I73.9 Peripheral vascular disease, unspecified; F17.200 Nicotine dependence, unspecified, uncomplicated; Z95.5 Presence of coronary angioplasty implant and graft
CPT/HCPCS: 36415; 80061; 80076

== ENCOUNTER → 2021-09-16 07:48 | Outpatient (CLI) | payer MEDICAID, SELFPAY ==
--- NOTE | 2021-09-16 07:48 | US_ITS ---
FINAL REPORT CLINICAL HISTORY: AAA COMPARISON: September 20, 2020 FINDINGS: Limited sonographic images were obtained of the abdomen to evaluate the abdominal aorta and iliac arteries. The abdominal aorta measures up to 3.7 cm in greatest dimension. The iliac arteries are mildly enlarged measuring up to 1.3 cm. IMPRESSION: Fusiform infrarenal abdominal aortic aneurysm. Essentially unchanged from the prior exam. Reviewed, Interpreted and Dictated by Kalin Marte MD Transcribed by Olga Clifford Authenticated by Kalin Marte MD on 09/16/2021 09:46:26 AM [facility]
[2021-09-16 09:22] LABS: Chol/HDL Ratio 6.9 (1-3.5); Cholesterol 247 mg/dl (140-200); HDL Cholesterol 36 mg/dl (40-60); Triglycerides 160 mg/dl (30-150); VLDL Cholesterol 32 mg/dL (0-40)
[2021-09-16 09:32] LABS: Direct LDL Cholesterol 172.14 mg/dL (100-129)
== END ==
PROVIDERS: PCP Internal Medicine; Visit Provider Nurse Practitioner Family
DX: R42 Dizziness and giddiness (principal); I25.10 Atherosclerotic heart disease of native coronary artery without angina pectoris; I11.9 Hypertensive heart disease without heart failure; E78.5 Hyperlipidemia, unspecified; I71.4 Abdominal aortic aneurysm, without rupture; I73.9 Peripheral vascular disease, unspecified; F17.200 Nicotine dependence, unspecified, uncomplicated; Z95.5 Presence of coronary angioplasty implant and graft
CPT/HCPCS: 76705; 80061

== ENCOUNTER → 2021-12-03 09:32 | Outpatient (CLI) | payer MEDICAID, SELFPAY | PROVIDERS: Visit Provider Physician Assistant | DX: I25.10 Atherosclerotic heart disease of native coronary artery without angina pectoris (principal) ==

== ENCOUNTER → 2021-12-08 09:03 | Outpatient (CLI) | payer MEDICAID, SELFPAY ==
[2021-12-08 09:56] LABS: Alanine Aminotransferase 16 U/L (12-78); Albumin Level 4.2 g/dl (3.5-5.0); Alkaline Phosphatase 85 U/L (38-126); Aspartate Amino Transferase 21 U/L (17-59); Bilirubin,Indirect 0.3 mg/dL (0.0-0.9); Bilirubin,Total 0.3 mg/dl (0.2-1.3); Bilirubin,Unconjugated 0.4 mg/dL (0.0-1.1); Chol/HDL Ratio 4.8 (1-3.5); Cholesterol 172 mg/dl (140-200); HDL Cholesterol 36 mg/dl (40-60); Total Protein,Serum 7.1 g/dl (6.3-8.2); Triglycerides 158 mg/dl (30-150); VLDL Cholesterol 32 mg/dL (0-40)
[2021-12-08 10:07] LABS: Direct LDL Cholesterol 95.68 mg/dL (100-129)
== END ==
PROVIDERS: Visit Provider Physician Assistant
DX: R06.00 Dyspnea, unspecified (principal); I25.10 Atherosclerotic heart disease of native coronary artery without angina pectoris; I11.9 Hypertensive heart disease without heart failure; E78.5 Hyperlipidemia, unspecified; I71.4 Abdominal aortic aneurysm, without rupture; I73.9 Peripheral vascular disease, unspecified; F17.200 Nicotine dependence, unspecified, uncomplicated; Z87.39 Personal history of other diseases of the musculoskeletal system and connective tissue; Z95.5 Presence of coronary angioplasty implant and graft
CPT/HCPCS: 36415; 80061; 80076

== ENCOUNTER → 2022-04-15 09:10 | Outpatient (CLI) | payer MEDICAID, SELFPAY ==
[2022-04-15 10:15] LABS: Basophils # 0.1 K/mm3 (0-0.2); Basophils % 1.3 % (0.1-2.0); Eosinophils # 0.2 K/mm3 (0.0-0.4); Eosinophils % 2.3 % (0.1-12.0); Hemoglobin 14.9 g/dL (14.1-18.0); Lymphocytes # 1.8 K/mm3 (0.7-4.5); Lymphocytes % 25.9 % (10-50); Mean Corpuscular HGB Conc 31.6 g/dL (31.8-35.4); Mean Corpuscular Hemoglobin 31.2 pg (27.0-31.2); Mean Corpuscular Volume 98.5 fl (80-94); Mean Platelet Volume 8.7 fl (7.4-10.4); Monocytes # 0.4 K/mm3 (0.1-1.0); Monocytes % 5.2 % (1.7-9.3); Neutrophils # 4.6 K/mm3 (1.8-7.8); Neutrophils % 65.4 % (37.0-80.0); Platelet Count 268 K/mm3 (142-424); Red Blood Count 4.78 M/mm3 (4.60-6.20); Red Cell Distribution Width 13.8 % (11.5-17.5)
[2022-04-15 10:55] LABS: Alanine Aminotransferase 10 U/L (12-78); Albumin Level 4.3 g/dl (3.5-5.0); Alkaline Phosphatase 91 U/L (38-126); Anion Gap 8.2 mEq/L (5-15); Aspartate Amino Transferase 20 U/L (17-59); Bilirubin,Indirect 0.2 mg/dL (0.0-0.9); Bilirubin,Total 0.2 mg/dl (0.2-1.3); Bilirubin,Unconjugated 0.2 mg/dL (0.0-1.1); Blood Urea Nitrogen 13 mg/dl (9-20); Calcium 9.4 mg/dl (8.4-10.2); Carbon Dioxide 29 mmol/L (22.0-30.0); Chloride 104 mmol/L (98-107); Chol/HDL Ratio 6.3 (1-3.5); Cholesterol 213 mg/dl (140-200); Estimated Glomerular Filt Rate 86 ml/min (>60); GFR (African American) 104 ML/MIN (>60); Glucose 90 mg/dl (74-100); HDL Cholesterol 34 mg/dl (40-60); Potassium 5.2 mmoL/L (3.5-5.1); Sodium 136 mmol/L (136-145); Triglycerides 203 mg/dl (30-150); VLDL Cholesterol 41 mg/dL (0-40)
[2022-04-15 11:05] LABS: Direct LDL Cholesterol 131.73 mg/dL (100-129)
[2022-04-15 11:12] LABS: Troponin I < 0.01 ng/ml (0.00-0.034)
[2022-04-15 11:25] LABS: Thyroid Stimulating Hormone 1.35 uIU/mL (0.465-4.68)
== END ==
PROVIDERS: Visit Provider Nurse Practitioner Family
DX: I20.8 Other forms of angina pectoris (principal); I11.9 Hypertensive heart disease without heart failure; E78.5 Hyperlipidemia, unspecified; I71.4 Abdominal aortic aneurysm, without rupture; I73.9 Peripheral vascular disease, unspecified; F17.200 Nicotine dependence, unspecified, uncomplicated; Z95.5 Presence of coronary angioplasty implant and graft
CPT/HCPCS: 36415; 80048; 80061; 80076; 83735; 84439; 84443; 84484; 85025

== ENCOUNTER → 2022-05-28 06:51 | Outpatient (CLI) | payer MEDICAID, SELFPAY ==
--- NOTE | 2022-05-28 | CA_ITS ---
APPROVED REPORT Exam: Pharmacologic Technologist: Lavinia Nguyễn, Ht: 5 ft 8 in Wt: 167 lbs BSA: 1.89 m2 HR: 64 bpm BP: 125/78 mmHg Rhythm: NSRm, rightward axis, cannot R/O old inferior FL Medical History Medical History: HTN, Hyperlipidemia Medications: Aspirin,,,,, CloPIdogrel,,,,, Cardiac Risk Factors: HTN, Hyperlipidemia, Smoking Stress Test Details Test: LEXISCAN HR Resting HR: 80 bpm Max Heart Rate (APMHR): 160.454303 bpm Max HR Achieved: 105 bpm Target HR (85% APMHR): 136.595332 bpm % of APMHR: 65.63 Recovery HR: 85 bpm BP Resting BP: 125/78 mmHg Max BP: 147/89 mmHg Recovery BP: 129.0/83.0 mmHg ECG Resting ECG: NSR, rightward axis, cannot R/O old inferior FL Clinical Exercise duration: 04:00 min Highest Stage Achieved: Stress ECG Conclusion During lexiscan pt experinced brief SOA, mild stomach and head discomfort. No CP noted. No arrhythmias noted. NS T wave changes, most notable in lead 3. Non diagnostic lexiscan stress. Myoview images reported separately. Test Summary REST . . . . . . . Sitting REST 04:42 . . 80 . 125/ 78 . . Stage 1 01:00 . . 89 . . . . Stage 2 01:00 . . 91 . 147/ 89 . . Stage 3 01:00 . . 91 . 139/ 81 . . Stage 4 01:00 . . 88 . 113/ 79 . Stop exercise at 04:00 RECOVERY 01:00 . . 85 . . . . RECOVERY 02:00 . . 87 . 129/ 83 . . RECOVERY 03:00 . . 96 . 138/ 86 . . RECOVERY 04:00 . . 87 . 138/ 86 . . RECOVERY 04:16 . . 85 . 138/ 86 . . Electronically signed by : Haresh Kunz MD 05/29/2022 18:32:51
--- NOTE | 2022-05-28 07:03 | NM_ITS ---
APPROVED REPORT Exam: Nuclear Stress Test Indication: SOB, Fatigue, High cholesterol, Tobacco use, Family history, CAD, Hx of FL Patient Location: Outpatient Stress Tech: Lavinia BROTHERS Tech:Aliyah Benites WILDA RT(R)(N) Ht: 5 ft 8 in Wt: 160 lbs HR: 80 bpm BP: 125/78 mmHg BSA: 1.86 m2 TID: 1.15 BMI: 24.3 History: SOB, Fatigue, High cholesterol, Tobacco use, Family history, CAD, Hx of FL Procedure: Patient received a 0.4 mg of intravenous Lexiscan, resting heart rate 80 bpm, resting blood pressure 125/78 mmHg, with Lexiscan maximum heart rate achived was 105 bpm which is Less than 85 % of the maximum predicted heart rate and blood pressure was 147/89 mmHg. With Lexiscan, patient denied any complaint of chest pain. Electrocardiogram Resting electrocardiogram shows sinus rhythm, with Lexiscan there is less than 1.[address] segment depression from the baseline EKG. The EKG portion of the Lexiscan is nondiagnostic. Cardiac Stress and Resting SPECT Images: Cardiac Stress and Resting SPECT images were obtained using technetium 99m Myoview 31.8 mCi stress and 10.51 mCi at rest. Gated SPECT for analysis of segmental wall motion and calculation of the ejection fraction also done. Cardiac stress and rest respectively show uniform myocardial activity without segmental perfusion abnormality, computer derived ejection fraction is 46% with no regional wall motion abnormality, right ventricle is normal size and contractility. Conclusion: 1. The EKG portion of the Lexiscan is nondiagnostic. 2. No scintigraphic evidence of reversible ischemia seen, computer derived ejection fraction is 46% with no regional wall motion abnormality, right ventricle is normal size and contractility. 3. Normal Lexiscan Myoview study. Electronically signed by : Haresh Kunz MD 05/29/2022 18:35:03
== END ==
PROVIDERS: Visit Provider Nurse Practitioner Family
DX: I20.8 Other forms of angina pectoris (principal); I11.9 Hypertensive heart disease without heart failure; E78.5 Hyperlipidemia, unspecified; I71.4 Abdominal aortic aneurysm, without rupture; I73.9 Peripheral vascular disease, unspecified; F17.200 Nicotine dependence, unspecified, uncomplicated; Z95.5 Presence of coronary angioplasty implant and graft
CPT/HCPCS: 78452; 93017; A9502; J2785

== ENCOUNTER 2022-09-24 16:06 | Emergency (ER) | payer MEDICAID, SELFPAY ==
[2022-09-24] VITALS (7 sets, daily range): BP systolic 107–122; BP diastolic 75–87; PULSE 56–77; RESP 10–22; TEMP 36.6; O2SAT 94–96; BMI 24.3
--- NOTE | 2022-09-24 16:03 | ECG_ITS ---
APPROVED REPORT Exam: Resting ECG HR:60 bpm ECG Measurements Heart Rate 60 AXES AK 156 P 47 QRSd 110 QRS 8 QT 383 T 54 QTc 384 Conclusion SINUS RHYTHM NORMAL ECG UNCONFIRMED REPORT Electronically signed by : Joce Morley MD 09/25/2022 14:21:32
--- NOTE | 2022-09-24 16:11 | XR_ITS ---
PROCEDURE INFORMATION: Exam: XR Chest Exam date and time: 09/24/2022 4:20 PM Age: 62 years old Clinical indication: Pain; Chest pressure; Additional info: Chest pain TECHNIQUE: Imaging protocol: Radiologic exam of the chest. Views: 2 views. COMPARISON: CR XR CHEST 2V 03/13/2021 1:40 PM FINDINGS: Lungs: Unremarkable. No consolidation. Pleural spaces: Unremarkable. No pleural effusion. No pneumothorax. Heart/Mediastinum: Unremarkable. No cardiomegaly. Bones/joints: Unremarkable. IMPRESSION: No acute findings.
[2022-09-24 16:24] LABS: Basophils # 0.1 K/mm3 (0-0.2); Eosinophils # 0.3 K/mm3 (0.0-0.4); Eosinophils % 4.3 % (0.1-12.0); Lymphocytes # 2.3 K/mm3 (0.7-4.5); Lymphocytes % 32.1 % (10-50); Mean Corpuscular HGB Conc 33.4 g/dL (31.8-35.4); Mean Corpuscular Hemoglobin 31.6 pg (27.0-31.2); Mean Corpuscular Volume 94.6 fl (80-94); Mean Platelet Volume 8.8 fl (7.4-10.4); Monocytes # 0.3 K/mm3 (0.1-1.0); Monocytes % 4.6 % (1.7-9.3); Neutrophils # 4.2 K/mm3 (1.8-7.8); Neutrophils % 58.1 % (37.0-80.0); Platelet Count 245 K/mm3 (142-424); Red Blood Count 4.75 M/mm3 (4.60-6.20); Red Cell Distribution Width 13.6 % (11.5-17.5); White Blood Count 7.2 K/mm3 (4.8-10.8)
[2022-09-24 16:25] LABS: Chloride 105 mmol/L (98-107); Potassium 3.9 mmoL/L (3.5-5.1); Sodium 138 mmol/L (136-145)
[2022-09-24 16:28] LABS: Anion Gap 9.9 mEq/L (5-15); Blood Urea Nitrogen 14 mg/dl (9-20); Calcium 8.8 mg/dl (8.4-10.2); Carbon Dioxide 27 mmol/L (22.0-30.0); Creatinine Clearance Estimated 81 mL/min (50-200); Estimated Glomerular Filt Rate 76 ml/min (>60); GFR (African American) 92 ML/MIN (>60); Glucose 132 mg/dl (74-100)
--- NOTE | 2022-09-24 16:34 | HMH.EDGENADL ---
Discharge Plan Disposition Patient Disposition: Home, Self-Care Prescriptions Prescriptions: No Action aspirin [Adult Low Dose Aspirin] 81 mg tablet,delayed release (DR/EC) 81 mg PO DAILY isosorbide mononitrate 30 mg tablet extended release 24 hr 30 mg PO DAILY Qty: 30 3RF clopidogrel 75 mg tablet 75 mg PO DAILY Qty: 30 5RF atorvastatin [Lipitor] 40 mg tablet 40 mg PO DAILY Qty: 30 3RF Referrals Follow up/Referrals: Freddy Yadav MD [Staff Physician] - See instructions (follow up next week ) Provider,MD Preeti [Primary Care Provider] - See instructions Clinical Impressions Clinical Impression: Atypical chest pain Discharge ED Provider: Regan Garcia General Adult HPI General Chief complaint: Chest Pain Stated complaint: chest pain Time Seen by Provider: 09/24/22 16:34 Mode of Arrival: Ambulatory Source of Information: Patient Limitations: No Limitations Description of Symptoms (Recalled from ER Triage Doc. 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 Pt describes the pain as burning sensation with intermittent numbness to bilateral UE/LE. Hx of 7 cardiac stents, Rx Plavix and Asa 81mg. Last 2016. Pt called Dr. Yadav which recommended to go to ER for further evaluation. Denies precipitating/alleviating factors. History of Present Illness HPI narrative: Patient is a 62-year-old male with a history of coronary disease with 7 coronary stents and known history of AAA at 3.7 cm presents today with some chest discomfort. This has been intermittent over the last 48 hours associate with bilateral upper extremity tingling. States he is currently not having any symptoms specifically no upper extremity weakness or sensory changes. Denies any current chest pain. States this has not been exertional in nature. Not positional in nature. No fevers chills cough or any other cardiopulmonary symptoms. Call Dr. Yadav's office they told him to come to the emergency department. Related Data Home Medications Medication Instructions Recorded Confirmed aspirin 81 mg tablet,delayed 81 mg PO DAILY High blood pressure 02/01/19 04/15/22 release (Adult Low Dose Aspirin) Previous Rx's Medication Instructions Recorded clopidogrel 75 mg tablet 75 mg PO DAILY #30 tabs 11/11/21 atorvastatin 40 mg tablet (Lipitor) 40 mg PO DAILY #30 tabs 04/15/22 isosorbide mononitrate 30 mg 30 mg PO DAILY #30 tabs 04/15/22 tablet,extended release 24 hr Allergies Allergy/AdvReac Type Severity Reaction Status Date / Time atorvastatin AdvReac Mild myalgia Verified 04/15/22 08:33 [facility] Disclaimer: The information contained in this section may have been updated after the patient was seen, as this information can be updated by other users. Medical History (Updated 09/24/22 @ 19:40 by Regan Garcia MD) Abdominal aortic aneurysm (AAA) Abnormal cardiovascular stress test Atypical angina Coronary arteriosclerosis Dyspnea Hyperlipidemia Hypertensive heart disease PAD (peripheral artery disease) Tobacco dependence syndrome Typical angina Social History Smoking Status: Current every day smoker tobacco type: cigarettes packs per day: 1 alcohol intake: never substance use type: denies use current occupational status: unemployed Travel in the last 8 weeks: Inside the [place] household members: none housing: house ROS Obtained: Yes All systems reviewed & no additional complaints except as documented Physical Exam General General appearance: alert and in no apparent distress Respiratory Respiratory exam: Present normal lung sounds bilaterally; Absent respiratory distress Cardiovascular Cardiovascular exam: Present regular rate; Absent tachycardia Abdominal Exam Abdominal exam: Present soft; Absent distention or tenderness Neurological Exam Neurologica
--- NOTE | 2022-09-24 16:37 | PC.NURSE ---
MAX RESENDIZ at for pt davidal
[2022-09-24 16:48] LABS: Troponin I < 0.01 ng/ml (0.00-0.034)
[2022-09-24 19:37] LABS: Troponin I < 0.01 ng/ml (0.00-0.034)
== END 2022-09-24 19:45 | disposition home or self-care (01) ==
PROVIDERS: Emergency Provider Student in an Organized Health Care Education/Training Program
DX: R07.9 Chest pain, unspecified (principal); F17.210 Nicotine dependence, cigarettes, uncomplicated
CPT/HCPCS: 71046; 80048; 84484; 85025; 93005; 99285

== ENCOUNTER → 2022-10-23 12:50 | Outpatient (CLI) | payer MEDICAID, SELFPAY ==
--- NOTE | 2022-10-23 12:51 | US_ITS ---
FINAL REPORT CLINICAL HISTORY: claudication, 7 cardiac stents, current smoker, history of ID, previous angioplasty cardiac, bilateral rest pain and claudication. COMPARISON: None FINDINGS: LOWER EXTREMITY SEGMENTAL PRESSURE MEASUREMENTS FINDINGS: Pressure indices are as follows: RIGHT LOWER EXTREMITY: Thigh: 0.99 Calf: 1.02 Ankle, posterior tibial artery: 1.15 Ankle, dorsalis pedis: 1.13 Toe: 0.80 Comments: LEFT LOWER EXTREMITY: Thigh: 1.05 Calf: 0.98 Ankle, posterior tibial artery: 1.07 Ankle, dorsalis pedis: 1.11 Toe: 0.81 Comments: IMPRESSION: No evidence of significant obstructive peripheral vascular disease of the lower extremities Reviewed, Interpreted and Dictated by Lalo Jones III, MD Transcribed by Leila Loredo Authenticated and [facility]
== END ==
PROVIDERS: PCP Internal Medicine; Visit Provider Nurse Practitioner Family
DX: I70.213 Atherosclerosis of native arteries of extremities with intermittent claudication, bilateral legs (principal)
CPT/HCPCS: 93923

== ENCOUNTER 2022-11-25 10:22 | Emergency (ER) | payer MEDICAID, SELFPAY ==
[2022-11-25 10:23] VITALS: BP 144/97; PULSE 84; RESP 18; TEMP 36.7; O2SAT 96; BMI 27.1
--- NOTE | 2022-11-25 10:43 | EXP.UTC ---
Discharge Plan Disposition Patient Disposition: Home, Self-Care Condition: Good Prescriptions Prescriptions: New benzonatate [benzonatate] 100 mg capsule 100 mg PO TIDP PRN (Reason: Cough) Qty: 30 0RF methylprednisolone 4 mg Tablets,Dose Pack 4 mg PO DIRECTED Qty: 21 0RF amoxicillin-pot clavulanate 875-125 mg Tablet 1 tab PO Q12H Qty: 20 0RF No Action aspirin [Adult Low Dose Aspirin] 81 mg tablet,delayed release (DR/EC) 81 mg PO DAILY ranolazine 500 mg tablet extended release 12 hr 500 mg PO BID Qty: 60 5RF clopidogrel 75 mg tablet 75 mg PO DAILY Qty: 90 5RF Referrals Follow up/Referrals: Provider,Referral, MD [Primary Care Provider] - See instructions Activity Restrictions/Add. Instructions Additional Instructions/Restrictions: Drink plenty of fluids. Take tylenol or ibuprofen for pain or fever. Take the medications as directed. Follow up with your regular doctor. GO TO THE ER FOR ANY WORSENING SYMPTOMS Clinical Impressions Clinical Impression: Sinusitis, Bronchitis Instructions Patient Instructions: Sinusitis, DI for Sinusitis Discharge ED Provider: Arash Silverman [facility] General Stated complaint: SANDERSON, ear pain, chest congestion, body aches Mode of Arrival: Ambulatory Source of Information: Patient Limitations: No Limitations Time Seen by Provider: 11/25/22 10:43 Description of Symptoms (Recalled from Triage Doc. by RN): Patient reports chest congestion, ears being stopped up and low energy for 1 month. HEENT Symptoms (Recalled from RN notes): Yes Resp Symptoms (Recalled from RN notes): No Skin Symptoms (Recalled from RN notes): No MS Symptoms (Recalled from RN notes): No Functional Status (Recalled from RN notes): wnl History of Present Illness Provider Complaint: He states that for the past 1 month he has had sinus and chest congestion. Related Data Home Medications Medication Instructions Recorded Confirmed aspirin 81 mg tablet,delayed 81 mg PO DAILY High blood pressure 02/01/19 10/19/22 release (Adult Low Dose Aspirin) Previous Rx's Medication Instructions Recorded ranolazine 500 mg tablet,extended 500 mg PO BID #60 tabs 10/19/22 release,12 hr clopidogrel 75 mg tablet 75 mg PO DAILY #90 tabs 10/26/22 amoxicillin 875 mg-potassium 1 tab PO Q12H #20 tabs 11/25/22 clavulanate 125 mg tablet benzonatate 100 mg capsule 100 mg PO TIDP PRN Cough #30 caps 11/25/22 methylprednisolone 4 mg tablets in 4 mg PO DIRECTED #21 tabs 11/25/22 a dose pack Allergies Allergy/AdvReac Type Severity Reaction Status Date / Time atorvastatin AdvReac Mild myalgia Verified 10/19/22 09:25 isosorbide AdvReac Severe Headache Uncoded 10/19/22 09:58 Worker's Comp Is this a Worker's Comp case?: No PFSH PFS Disclaimer: The information contained in this section may have been updated after the patient was seen, as this information can be updated by other users. Medical History Abdominal aortic aneurysm (AAA) Abnormal cardiovascular stress test Angina pectoris Atypical angina Claudication Coronary arteriosclerosis Dyspnea Hyperlipidemia Hypertensive heart disease PAD (peripheral artery disease) Tobacco dependence syndrome Typical angina Social History Smoking Status: Current every day smoker tobacco type: cigarettes packs per day: 1 alcohol intake: never substance use type: denies use current occupational status: unemployed Travel in the last 8 weeks: [place] the [place] household members: none housing: house ROS Obtained: Yes All systems reviewed & no additional complaints except as documented Constitutional Constitutional: Reports poor appetite Eyes Eyes: Reports system reviewed and no additional complaints, except as documented ENT Ears, Nose, Mouth, and Throat: Reports as per HPI Cardiovascular Cardiovascular:
[2022-11-25 11:14] VITALS: BP 144/97; PULSE 84; RESP 18; TEMP 36.7; O2SAT 96
== END 2022-11-25 11:14 | disposition home or self-care (01) ==
PROVIDERS: Emergency Provider Nurse Practitioner Family
DX: J01.90 Acute sinusitis, unspecified (principal); J20.9 Acute bronchitis, unspecified; F17.210 Nicotine dependence, cigarettes, uncomplicated; I11.9 Hypertensive heart disease without heart failure; I25.83 Coronary atherosclerosis due to lipid rich plaque; I73.89 Other specified peripheral vascular diseases; I25.111 Atherosclerotic heart disease of native coronary artery with angina pectoris with documented spasm
CPT/HCPCS: 99204; 99212; 99214; G0463

== ENCOUNTER 2023-08-08 21:25 | Inpatient (IN) | payer MEDICAID, SELFPAY ==
[2023-08-08] VITALS (8 sets, daily range): BP systolic 77–103; BP diastolic 50–66; PULSE 46–55; RESP 12–18; TEMP 36.6–37.1; O2SAT 94–100; BMI 25.8
--- NOTE | 2023-08-08 21:27 | ECG_ITS ---
APPROVED REPORT Exam: Resting ECG HR:43 bpm ECG Measurements Heart Rate 43 AXES LA 147 P 29 QRSd 109 QRS -21 QT 373 T 85 QTc 321 Conclusion SINUS BRADYCARDIA ANTEROLATERAL MYOCARDIAL INFARCTION , OF INDETERMINATE AGE [40+ ms Q WAVE IN I/aVL/V3-V6] ABNORMAL ECG UNCONFIRMED REPORT Electronically signed by : Arash Garcia, 08/13/2023 15:45:58
--- NOTE | 2023-08-08 21:28 | ED_ITS ---
I was consulted by the SHANTE, and we discussed the complexity of the problems being addressed. I approved the treatment and management plan for this patient's care in the emergency department, thus performing a substantive portion of the medical decision making. Tato Flores MD 63-year-old male significant cardiac history presents with concern for completing inferior STEMI. Case immediately discussed with cardiology upon arrival, Q waves with suspected resolving ST elevation scooping in the inferior leads. Initially hypotensive but volume responsive not requiring epinephrine. Aspirin administered. Significant symptomatic bradycardia however no persistent hemodynamic instability to necessitate pacing. Extremely elevated troponin consistent with completing ACS. Patient is outside of benefit for acute heart catheterization given duration of symptoms since yesterday afternoon. Repeat evaluation patient had persistent pain, originally his chest pain was radiating up into his left neck, left neck pain now getting worse, CTA chest no acute dissection. Heparin drip initiated. Patient has a nonfocal neurologic exam and given no dissection in the chest extremely unlikely to have isolated nontraumatic carotid dissection therefore CT imaging of the neck will be defer red. Pain control with fentanyl. Patient admitted to hospital medicine in critical condition. Discharge Plan Disposition Patient Disposition: Admitted Condition: Critical Prescriptions Prescriptions: No Action aspirin [Adult Low Dose Aspirin] 81 mg tablet,delayed release (DR/EC) 81 mg PO DAILY ranolazine 500 mg tablet extended release 12 hr 500 mg PO BID Qty: 60 5RF clopidogrel 75 mg tablet 75 mg PO DAILY Qty: 90 5RF benzonatate [benzonatate] 100 mg capsule 100 mg PO TIDP PRN (Reason: Cough) Qty: 30 0RF methylprednisolone 4 mg Tablets,Dose Pack 4 mg PO DIRECTED Qty: 21 0RF amoxicillin-pot clavulanate 875-125 mg Tablet 1 tab PO Q12H Qty: 20 0RF Referrals Follow up/Referrals: Provider,Referral, [Primary Care Provider] - See instructions Activity Restrictions/Add. Instructions Additional Instructions/Restrictions: Patient is critical but stable. Clinical Impressions Clinical Impression: Junctional bradycardia, ACS (acute coronary syndrome) Discharge ED Provider: Taot Flores HPI <TRES Das - Last Filed: 08/08/23 22:40> General Chief Complaint: Chest Pain Stated Complaint: CP Time Seen by Provider: 08/08/23 21:28 History of Present Illness HPI narrative: Patient presents for chest pain that started yesterday while he was working in the [employer] . Patient reports that it eventually went away but he felt it across his back with diaphoresis but no nausea vomiting or diarrhea. However he is felt to begin today constantly but he describes as a low pressure but has not had diaphoresis. He does have a significant cardiovascular history with having previous stents and does follow routinely with Dr. Yadav. Related Data Home Medications Medication Instructions Recorded Confirmed aspirin 81 mg tablet,delayed 81 mg PO DAILY High blood pressure 02/01/19 10/19/22 release (Adult Low Dose Aspirin) Previous Rx's Medication Instructions Recorded ranolazine 500 mg tablet,extended 500 mg PO BID #60 tabs 10/19/22 release,12 hr clopidogrel 75 mg tablet 75 mg PO DAILY #90 tabs 10/26/22 amoxicillin 875 mg-potassium 1 tab PO Q12H #20 tabs 11/25/22 clavulanate 125 mg tablet benzonatate 100 mg capsule 100 mg PO TIDP PRN Cough #30 caps 11/25/22 methylprednisolone 4 mg tablets in 4 mg PO DIRECTED #21 tabs 11/25/22 a dose pack Allergies Allergy/AdvReac Type Severity Reaction Status Date / Time atorvastatin AdvReac Mild myalgia Verified 10/19/22 09:25 isosorbide AdvReac Severe Headache Uncoded 10/19/22 09:58 PFSH <TRES Das - Last Filed: 08/08/23 22:40> PFSH Disclaimer: The information contained in this section may have been updated after the patient was seen, as this information can be updated by other users. Medical History Abdominal aortic aneurysm (AAA) Abnormal cardiovascular stress test Angina pectoris Atypical angina Claudication Coronary arteriosclerosis Dyspnea Hyperlipidemia Hypertensive heart disease PAD (peripheral artery disease) Tobacco dependence syndrome Typical angina Social History Smoking Status: Current every day smoker tobacco type: cigarettes packs per day: 1 alcohol intake: never substance use type: denies use current occupational status: unemployed Travel in the last 8 weeks: Inside the [place] household members: none housing: house <TRES Das - Last Filed: 08/08/23 22:40> ROS Obtained: Yes Systems reviewed as appropriate & no additional complaints except as documented Physical Exam <TRES Das - Last Filed: 08/08/23 22:40> General General appearance: alert and in no apparent distress Head Head exam: atraumatic and normal inspection Eye Eye exam: Present normal appearance, PERRL and EOMI ENT ENT exam: Present normal exam, normal oropharynx and mucous membranes moist Neck Neck exam: Present normal inspection, full ROM and trachea midline; Absent lymphadenopathy Chest Chest inspection: Present normal inspection and symmetric chest wall rise Respiratory Respiratory exam: Present normal lung sounds bilaterally; Absent respiratory distress or accessory muscle use Cardiovascular Cardiovascular exam: Present normal rhythm, bradycardia, normal heart sounds, +S1 and +S2 Abdominal Exam Abdominal exam: Present soft and normal bowel sounds; Absent tenderness, guardin g or rebound Extremities Exam Extremities exam: Present normal inspection and full ROM Neurological Exam Neurological exam: Present alert and oriented X3 Psychiatric Psychiatric exam: Present normal affect and normal mood Skin Skin exam: Present warm, dry and normal color HEART Score <TRES Das - Last Filed: 08/08/23 22:40> HEART Score HEART Score assessment performed?: Yes History (anamnesis): Highly suspicious ECG: Significant ST-deviation Age: 45-65 years Risk factors: Atherosclerosis history Troponin: > 3x normal limit HEART Score: 9 <Tato Flores MD - Last Filed: 08/08/23 22:48> HEART Score HEART Score: 9 Critical Care <TRES Das - Last Filed: 08/08/23 22:40> Critical Care Time Critical Care Time: Yes Attestation: On 08/08/23, the high probability of a clinically significant, sudden or life threatening deterioration of the following system(s) required my full and direct attention, intervention and personal management cardiovascular/cardiopulmonary. The time I documented below is in addition to time spent performing reported procedures but includes the following listed in this critical care notation. Total Time Total Critical Care Time: 45 Medical Decision Making <TRES Das - Last Filed: 08/08/23 22:40> Medical Records Medical records reviewed: Yes I reviewed the patient's medical records. Len Inquiry Pt receiving controlled substance: No Vital Signs Vital Signs: 08/08/23 21:25 08/08/23 21:30 08/08/23 21:33 Temperature 97.9 F Temperature Source Oral Pulse Rate 55 L 51 L Pulse Rate [Right] 53 L Respiratory Rate 16 18 12 Blood Pressure 84/55 L 77/50 L Blood Pressure [Right Arm] 82/54 L Blood Pressure Mean [Right Arm] 63 Blood Pressure Position [Right Arm] Sitting 02 Sat by Pulse Oximetry 99 98 99 Oxygen Delivery Method Room Air 08/08/23 21:42 08/08/23 21:50 08/08/23 22:22 Temperature Temperature Source Pulse Rate 50 L 47 L 53 L Pulse Rate [Right] Respiratory Rate 17 14 16 Blood Pressure 82/54 L 90/63 L 103/66 L Blood Pressure [Right Arm] Blood Pressure Mean [Right Arm] Blood Pressure Position [Right Arm] 02 Sat by Pulse Oximetry 99 98 100 Oxygen Delivery Method Lab Data Lab results reviewed: Yes I reviewed the patient's lab results. Labs: Lab Results 08/08/23 21:30: WBC 12.8 H, RBC 4.25 L, Hgb 13.5 L, Hct 41.8 L, MCV 98.3 H, MCH 31.8 H, MCHC 32.4, RDW 13.5, Plt Count 263, MPV 8.8, Neut % (Auto) 71.4, Lymph % (Auto) 21.7, Parmer % (Auto) 5.6, Eos % (Auto) 0.7, Baso % (Auto) 0.5, Neut # (Auto) 9.1 H, Lymph # (Auto) 2.8, Parmer # (Auto) 0.7, Eos # (Auto) 0.1, Baso # (Auto) 0.1, PT 10.5, INR 0.97, APTT 26.3, Sodium 137, Potassium 4.2, Chloride 105, Carbon Dioxide 29, Anion Gap 7.2, BUN 22 H, Creatinine 1.30 H, Estimated Creat Clear 63, Estimated GFR 56 L, Est GFR ( Amer) 68, Glucose 131 H, Calcium 8.8, Total Bilirubin 0.6, AST 202 H, ALT 43, Alkaline Phosphatase 72, Troponin I 39.40 H, Total Protein 6.8, Albumin 4.1, Globulin 2.7, Albumin/Globulin Ratio 1.5 08/08/23 21:30 08/08/23 21:30 Response Orders (Tests/Meds): ED MEDICATIONS Generic Name Dose Route Start Last Admin Trade Name Freq PRN Reason Stop Dose Admin Epinephrine HCl 5 mg/ Sodium 255 mls @ 6.12 mls/hr 08/08/23 21:38 Chloride IV 08/09/23 21:37 .Q24H ONE Protocol 2 MCG/MIN Heparin Sodium/Dextrose 500 mls @ 18 mls/hr 08/08/23 22:00 Heparin 25,000 Units In D5w 500ml Premix IV 09/07/23 21:59 .Q25H ABDOULAYE 900 UNIT/HR Miscellaneous 1 each 08/08/23 22:00 08/08/23 22:10 Heparin Drip Consult NOTAPPLIC 09/07/23 21:59 1 each CONSULT PHARMACY ABDOULAYE Administration Discontinued Medications Generic Name Dose Route Start Last Admin Trade Name Whit PRN Reason Stop Dose Admin Aspirin 325 mg 08/08/23 21:41 08/08/23 21:48 Aspirin 325mg Tablet PO 08/08/23 21:42 Not Given ONCE ONE Aspirin 81 mg 08/08/23 21:48 08/08/23 22:22 Aspirin 81mg Chewable Tablet PO 08/08/23 21:49 81 mg ONCE ONE Administration Fentanyl Citrate 50 mcg 08/08/23 22:27 Fentanyl 100mcg/2ml Vial IV 08/08/23 22:28 ONCE ONE Heparin Sodium (Porcine) 4,000 unit 08/08/23 21:50 Heparin Sodium 5,000 Unit/Ml Vial IV 08/08/23 21:51 ONCE ONE Lactated Ringer's 500 mls @ 999 mls/hr 08/08/23 21:41 08/08/23 22:22 Lactated Ringer's 500ml IV 08/08/23 22:11 999 mls/hr .Q31M ONE Administration Iopamidol 100 ml 08/08/23 22:23 08/08/23 22:24 Iopamidol-370 (76%);100ml Bottle IV 08/08/23 22:24 100 ml ONCE ONE Administration Sodium Chloride 10 ml 08/08/23 22:23 08/08/23 22:24 Sodium Chloride 0.9% 10ml Syr (Rad Only) IV 08/08/23 22:24 10 ml ONCE ONE Administration Sodium Chloride 50 ml 08/08/23 22:23 08/08/23 22:24 0.9 % Sodium Chloride 50 Ml Vial IV 03/03/24 22:24 50 ml ONCE ONE Administration ORDERS Category Date Time Status CTA Chest [CT angio chest - dissection] Stat Cat Scan 08/08/23 21:36 Taken POCUS Point of Care (ER Only) Stat Exams 08/08/23 21:41 Completed CBC w/Auto Diff [Complete Blood Count Auto Diff] Stat Lab 08/08/23 21:30 Completed CMP [Comprehensive Metabolic Panel] Stat Lab 08/08/23 21:30 Completed D-Dimer Stat Lab 08/08/23 21:30 Received Heparin drip PTT [PTT Heparin (inpatient only)] Stat Lab 08/09/23 04:00 Ordered INR [Prothrombin Time INR] Stat Lab 08/08/23 21:30 Completed PTT [Activated Partial Thrombo Time] Stat Lab 08/08/23 21:30 Completed Troponin I Q3H Lab 08/09/23 00:45 Ordered Troponin I Q3H Lab 08/09/23 03:45 Ordered Troponin I Stat Lab 08/08/23 21:30 Completed MDM Narrative Medical Decision Narrative: In summary patient is a 63-year-old male who presents to the emergency department for evaluation of chest pain . Patient is hypotensive bradycardic upon arrival, but afebrile having at 99% on room air. Patient has a nonfocal physical exam and was ambulatory on arrival. Patient reports pain radiates to his back. He currently rates his pain at 4 out of 10. Differential diagnosis i ncludes ACS versus PE versus dissection [facility]. Initial workup will be conducted with EKG hematologic labs CTA dissection protocol. Initial interventions include aspirin fluid challenge. Initial EKG shows bradycardia with a junctional rhythm and ST elevation in 2 3 and aVF. I discussed patient m anagement with Dr. Yadav after the first EKG prior to any further workup. Plan is for heparin, epinephrine drip for hypotension and bradycardia fluid bolus. Upon repeat evaluation had adequate response to hypotension with fluid bolus only and at this point we will hold an epinephrine drip for now unless patient becomes hemodynamically stable again and is not responsive to fluid challenge. Score is 9 troponin is 39.6 coagulation studies are normal. Patient has developed left-sided neck pain since arrival. My informal read of the CTA dissection protocol does not show any dissection or other thrombus but radiologist read is pending. Given this patient will be admitted to the hospitalist service for monitoring and review by cardiology in AM. Nitroglycerin is contraindicated at this point. <Tato Flores MD - Last Filed: 08/08/23 22:48> Vital Signs Vital Signs: 08/08/23 21:25 08/08/23 21:30 08/08/23 21:33 Temperature 97.9 F Temperature Source Oral Pulse Rate 55 L 51 L Pulse Rate [Right] 53 L Respiratory Rate 16 18 12 Blood Pressure 84/55 L 77/50 L Blood Pressure [Right Arm] 82/54 L Blood Pressure Mean [Right Arm] 63 Blood Pressure Position [Right Arm] Sitting 02 Sat by Pulse Oximetry 99 98 99 Oxygen Delivery Method Room Air 08/08/23 21:42 08/08/23 21:50 08/08/23 22:22 Temperature Temperature Source Pulse Rate 50 L 47 L 53 L Pulse Rate [Right] Respiratory Rate 17 14 16 Blood Pressure 82/54 L 90/63 L 103/66 L Blood Pressure [Right Arm] Blood Pressure Mean [Right Arm] Blood Pressure Position [Right Arm] 02 Sat by Pulse Oximetry 99 98 100 Oxygen Delivery Method Lab Data Labs: Lab Results 08/08/23 21:30: WBC 12.8 H, RBC 4.25 L, Hgb 13.5 L, Hct 41.8 L, MCV 98.3 H, MCH 31.8 H, MCHC 32.4, RDW 13.5, Plt Count 263, MPV 8.8, Neut % (Auto) 71.4, Lymph % (Auto) 21.7, Parmer % (Auto) 5.6, Eos % (Auto) 0.7, Baso % (Auto) 0.5, Neut # (Auto) 9.1 H, Lymph # (Auto) 2.8, Parmer # (Auto) 0.7, Eos # (Auto) 0.1, Baso # (Auto) 0.1, PT 10.5, INR 0.97, APTT 26.3, Sodium 137, Potassium 4.2, Chloride 10 5, Carbon Dioxide 29, Anion Gap 7.2, BUN 22 H, Creatinine 1.30 H, Estimated Creat Clear 63, Estimated GFR 56 L, Est GFR ( Amer) 68, Glucose 131 H, Calcium 8.8, Total Bilirubin 0.6, AST 202 H, ALT 43, Alkaline Phosphatase 72, Troponin I 39.40 H, Total Protein 6.8, Albumin 4.1, Globulin 2.7, Albumin/Globulin Ratio 1.5 Response Orders (Tests/Meds): ED MEDICATIONS Generic Name Dose Route Start Last Admin Trade Name Freq PRN Reason Stop Dose Admin Epinephrine HCl 5 mg/ Sodium 255 mls @ 6.12 mls/hr 08/08/23 21:38 Chloride IV 08/09/23 21:37 .Q24H ONE Protocol 2 MCG/MIN Heparin Sodium/Dextrose 500 mls @ 18 mls/hr 08/08/23 22:00 Heparin 25,000 Units In D5w 500ml Premix IV 09/07/23 21:59 .Q25H ABDOULAYE 900 UNIT/HR Miscellaneous 1 each 08/08/23 22:00 08/08/23 22:10 Heparin Drip Consult NOTAPPLIC 09/07/23 21:59 1 each CONSULT PHARMACY ABDOULAYE Administration Discontinued Medications Generic Name Dose Route Start Last Admin Trade Name Whit PRN Reason Stop Dose Admin Aspirin 325 mg 08/08/23 21:41 08/08/23 21:48 Aspirin 325mg Tablet PO 08/08/23 21:42 Not Given ONCE ONE Aspirin 81 mg 08/08/23 21:48 08/08/23 22:22 Aspirin 81mg Chewable Tablet PO 08/08/23 21:49 81 mg ONCE ONE Administration Fentanyl Citrate 50 mcg 08/08/23 22:27 Fentanyl 100mcg/2ml Vial IV 08/08/23 22:28 ONCE ONE Heparin Sodium (Porcine) 4,000 unit 08/08/23 21:50 Heparin Sodium 5,000 Unit/Ml Vial IV 08/08/23 21:51 ONCE ONE Lactated Ringer's 500 mls @ 999 mls/hr 08/08/23 21:41 08/08/23 22:22 Lactated Ringer's 500ml IV 08/08/23 22:11 999 mls/hr .Q31M ONE Administration Iopamidol 100 ml 08/08/23 22:23 08/08/23 22:24 Iopamidol-370 (76%);100ml Bottle IV 08/08/23 22:24 100 ml ONCE ONE Administration Sodium Chloride 10 ml 08/08/23 22:23 08/08/23 22:24 Sodium Chloride 0.9% 10ml Syr (Rad Only) IV 08/08/23 22:24 10 ml ONCE ONE Administration Sodium Chloride 50 ml 08/08/23 22:23 08/08/23 22:24 0.9 % Sodium Chloride 50 Ml Vial IV 08/08/23 22:24 50 ml ONCE ONE Administration ORDERS Category Date Time Status CTA Chest [CT angio chest - dissection] Stat Cat Scan 08/08/23 21:36 Taken POCUS Point of Care (ER Only) Stat Exams 08/08/23 21:41 Completed CBC w/Auto Diff [Complete Blood Count Auto Diff] Stat Lab 08/08/23 21:30 Co mpleted CMP [Comprehensive Metabolic Panel] Stat Lab 08/08/23 21:30 Completed D-Dimer Stat Lab 08/08/23 21:30 Received Heparin drip PTT [PTT Heparin (inpatient only)] Stat Lab 08/09/23 04:00 Ordered INR [Prothrombin Time INR] Stat Lab 08/08/23 21:30 Completed PTT [Activated Partial Thrombo Time] Stat Lab 08/08/23 21:30 Completed Troponin I Q3H Lab 08/09/23 00:45 Ordered Troponin I Q3H Lab 08/09/23 03:45 Ordered Troponin I Stat Lab 08/08/23 21:30 Completed ECG Data Tracing #1: ECG Narrative: Independently interpreted by me, rate is 43, rhythm is regular, junctional bradycardia, ST elevation in the inferior leads approximately 1 mm, no reciprocal changes. MDM Narrative Medical Decision Narrative: In summary patient is a 63-year-old male who presents to the emergency department for evaluation of chest pain . Patient is hypotensive bradycardic upon arrival, but afebrile having at 99% on room air. Patient has a nonfocal physical exam and was ambulatory on arrival. Patient reports pain radiates to his back. He currently rates his pain at 4 out of 10. Differential diagnosis includes ACS versus PE versus dissection [facility]. Initial workup will be conducted with EKG hematologic labs CTA dissection protocol. Initial interventions include aspirin fluid challenge. Initial EKG shows bradycardia with a junctional rhythm and ST elevation in 2 3 and aVF. Nitroglycerin contraindicated. I discussed patient management with Dr. Yadav after the first EKG prior to any further workup. Plan is for heparin, fluid bolus for mean arterial pressure goal greater than 65 and if refractory epinephrine drip. Upon repeat evaluation had adequate response to hypotension with fluid bolus onl y and at this point we will hold an epinephrine drip for now unless patient becomes hemodynamically unstable again and is not responsive to fluid challenge. Score is 9 troponin is 39.6 coagulation studies are normal. Patient has developed left-sided neck pain since arrival. My informal read of the CTA dissection protocol does not show any dissection or other thrombus but radiologist read is pending. Given this patient will be admitted to the hospitalist service for monitoring and review by cardiology in AM.
--- NOTE | 2023-08-08 21:31 | PC.NURSE ---
Dr. Yadav paged for Don's extension, Dr. Yadav on phone with mid level
--- NOTE | 2023-08-08 21:36 | CT_ITS ---
PROCEDURE INFORMATION: Exam: CTA Chest With Contrast Exam date and time: 08/08/2023 9:57 PM Age: 63 years old Clinical indication: Pain; Chest pressure; Additional info: Chest pain TECHNIQUE: Imaging protocol: Computed tomographic angiography of the chest with contrast. Exam focused on the arteries. 3D rendering (Not supervised by radiologist): MIP and/or 3D reconstructed images were created by the technologist. Radiation optimization: All CT scans at this facility use at least one of these dose optimization techniques: automated exposure control; mA and/or kV adjustment per patient size (includes targeted exams where dose is matched to clinical indication); or iterative reconstruction. Contrast material: ISO 370; Contrast volume: 100 ml; Contrast route: INTRAVENOUS (IV); COMPARISON: [facility] CTA-CHEST 12/31/2016 10:26 AM FINDINGS: Pulmonary arteries: Normal. No pulmonary emboli. Aorta: Unremarkable. No aortic aneurysm. No aortic dissection. Celiac trunk and mesenteric arteries: There is a greater than 50% stenosis at the origin of the celiac axis. Lungs: 8.6 x 12.6 mm left lower lobe pulmonary nodule axial image 43 similar to the prior examination. 7.7 mm sub solid right lower lobe nodule axial image 47 similar to the prior exam. Diffuse mild emphysematous changes. Pleural spaces: Unremarkable. No pneumothorax. No pleural effusion. Heart: Unremarkable. No cardiomegaly. No pericardial effusion. Lymph nodes: Unremarkable. No enlarged lymph nodes. Kidneys and ureters: Multiple bilateral nonobstructing renal calculi are noted. Bones/joints: Moderate to severe degenerative disc disease of the mid to lower thoracic spine. No acute fracture. Soft tissues: Unremarkable. IMPRESSION: 1. No acute findings in the chest. No pulmonary embolus or acute aortic abnormality. 2. Stable bilateral lower lobe pulmonary nodules. 3. 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 4. Other nonemergent findings as detailed. COMMENTS: The presence of pulmonary emphysema on CT is an independent risk factor for lung cancer. In the absence of a history or active diagnosis of lung cancer, it is recommended that this patient with emphysema be evaluated for enrollment in a low dose CT lung cancer screening program.
--- NOTE | 2023-08-08 21:46 | PC.NURSE ---
MD @ bedside for bedside ultrasound
--- NOTE | 2023-08-08 21:49 | PC.NURSE ---
Per patient he took 162mg aspirin an hour prior to coming to ED. New order received from Dr. Flores to dc current 325mg asa order and only administer one 81mg chewable tablet to patient.
--- NOTE | 2023-08-08 21:52 | PC.NURSE ---
patient to CT
[2023-08-08 22:03] LABS: Basophils # 0.1 K/mm3 (0-0.2); Basophils % 0.5 % (0.1-2.0); Eosinophils # 0.1 K/mm3 (0.0-0.4); Eosinophils % 0.7 % (0.1-12.0); Hematocrit 41.8 % (42.0-52.0); Hemoglobin 13.5 g/dL (14.1-18.0); Lymphocytes # 2.8 K/mm3 (0.7-4.5); Lymphocytes % 21.7 % (10-50); Mean Corpuscular HGB Conc 32.4 g/dL (31.8-35.4); Mean Corpuscular Hemoglobin 31.8 pg (27.0-31.2); Mean Corpuscular Volume 98.3 fl (80-94); Mean Platelet Volume 8.8 fl (7.4-10.4); Monocytes # 0.7 K/mm3 (0.1-1.0); Monocytes % 5.6 % (1.7-9.3); Neutrophils # 9.1 K/mm3 (1.8-7.8); Neutrophils % 71.4 % (37.0-80.0); Platelet Count 263 K/mm3 (142-424); Red Blood Count 4.25 M/mm3 (4.60-6.20); Red Cell Distribution Width 13.5 % (11.5-17.5); White Blood Count 12.8 K/mm3 (4.8-10.8)
[2023-08-08 22:08] LABS: Alanine Aminotransferase 43 U/L (12-78); Albumin Level 4.1 g/dl (3.5-5.0); Albumin/Globulin Ratio 1.5 (1.1-1.8); Alkaline Phosphatase 72 U/L (38-126); Anion Gap 7.2 mEq/L (5-15); Aspartate Amino Transferase 202 U/L (17-59); Bilirubin,Total 0.6 mg/dl (0.2-1.3); Blood Urea Nitrogen 22 mg/dl (9-20); Calcium 8.8 mg/dl (8.4-10.2); Carbon Dioxide 29 mmol/L (22.0-30.0); Chloride 105 mmol/L (98-107); Creatinine Clearance Estimated 63 mL/min (50-200); Estimated Glomerular Filt Rate 56 ml/min (>60); GFR (African American) 68 ML/MIN (>60); Globulin 2.7 g/dL (1.3-3.2); Glucose 131 mg/dl (74-100); INR 0.97 (0.9-1.1); Potassium 4.2 mmoL/L (3.5-5.1); Prothrombin Time 10.5 seconds (10.1-12.5); Sodium 137 mmol/L (136-145); Total Protein,Serum 6.8 g/dl (6.3-8.2)
[2023-08-08] MEDS: HEPARIN DRIP CONSULT 1 EACH NOTAPPLIC (22:10)
--- NOTE | 2023-08-08 22:20 | PC.NURSE ---
pt back from CT
[2023-08-08] MEDS: ASPIRIN 81MG CHEWABLE TABLET 81 MG PO (22:22)
[2023-08-08] MEDS: RINGERS SOLUTION,LACTATED 500 ML 999 ML IV (22:22)
[2023-08-08] MEDS: SODIUM CHLORIDE 0.9% 10ML SYR (RAD ONLY) 10 ML IV (22:24)
[2023-08-08] MEDS: 0.9 % SODIUM CHLORIDE 50 ML VIAL IV (22:24)
[2023-08-08] MEDS: IOPAMIDOL-370 (76%);100ML BOTTLE 100 ML IV (22:24)
[2023-08-08 22:30] LABS: Activated Partial Thrombo Time 26.3 seconds (22.8-30.6)
[2023-08-08] MEDS: HEPARIN SODIUM 5,000 UNIT/ML VIAL 4000 UNIT IV (22:43)
[2023-08-08 22:44] LABS: D-Dimer 0.58 ug/mL (0.0-0.5)
[2023-08-08] MEDS: HEPARIN SODIUM,PORCINE/D5W 500 ML 18 UNIT IV (22:45)
[2023-08-08] MEDS: FENTANYL 100MCG/2ML VIAL 50 MCG IV (22:46)
--- NOTE | 2023-08-08 22:52 | PC.NURSE ---
on phone with hospitalist
--- NOTE | 2023-08-08 22:58 | PC.NURSE ---
ACUTE ADMISSION TO 262 WITH DX OF CHEST PAIN TO SERVICE OF THE HOSPITALIST.
--- NOTE | 2023-08-08 23:06 | PC.NURSE ---
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 per house will be holding patient while the unit is being opened
[2023-08-09] VITALS (44 sets, daily range): BP systolic 68–121; BP diastolic 37–75; PULSE 36–80; RESP 14–25; TEMP 36.9–37.7; O2SAT 87–96; BMI 25.9
--- NOTE | 2023-08-09 00:31 | P.HP_ITS ---
Attending attestation Patient was seen and evaluated at the bedside myself, agree with SHANTE note. History of Present Illness *Admission Date: 08/08/23 *Reason for visit:: ACS *History of present illness: 63 year old male presented to [facility] ED for c/o chest pain that started yesterday. PMHX of tobacco abuse, CAD, PAD, hld, and htn. pt states that he was cutting wood when the chest pain started. He states the pain radiated into his back and shoulders and felt that his hearing was impaired. The pain was continued into today so he came to the ED. Upon arrival to the ED his pain radiated into his neck on the left side. He was hypotensive and bradycardic. The pt was given ASA, 1L of LR and 50 mcg of fentanyl for pain. His blood pressure improved with the fluid bolus. His EKG revealed inferior myocardial infarction with elevation in leads 2, 3, and AVF. ED physician consulted Cardiology, please see Dr. Flores's note. The pt was placed on a heparin gtt and received a CTA of his chest that demonstrated no aortic dissection, PE, or aneurysm. His initial troponin was 39.40 and 2nd was 36.30. The ED physician consulted the hospitalist team for further medical management. I admitted the pt to the step down unit. Upon admission he is alert, orientated X 4 and is ambulatory. He reports getting 7 stents in 2017. After arriving to the ICU, he become hypotensive. The pt was started on an epi gtt with goal MAP 65>. Cardiology will see pt in the morning [facility] Disclaimer: The information contained in this section may have been updated after the patient was seen, as this information can be updated by other users. Medical History Abdominal aortic aneurysm (AAA) Abnormal cardiovascular stress test Angina pectoris Atypical angina Claudication Coronary arteriosclerosis Dyspnea Hyperlipidemia Hypertensive heart disease PAD (peripheral artery disease) Tobacco dependence syndrome Typical angina Social History Smoking Status: Current every day smoker tobacco type: cigarettes packs per day: 1 alcohol intake: never substance use type: denies use current occupational status: unemployed Travel in the last 8 weeks: Inside the [place] household members: none housing: house Review of Systems Review of Systems Review of systems:: pertinent systems reviewed and negative unless documented below ENT Ears, Nose, Mouth, and Throat: Reports vertigo *Cardiovascular Cardiovascular: Reports chest pain *Neurologic Neurologic: Reports vertigo Meds Home Medications and Allergies Home Medications Medication Instructions Recorded Confirmed Type aspirin 81 mg tablet,delayed 81 mg PO DAILY High blood pressure 02/01/19 0 10/19/22 History release (Adult Low Dose Aspirin) ranolazine 500 mg tablet,extended 500 mg PO BID #60 tabs 10/19/22 10/19/22 Rx release,12 hr clopidogrel 75 mg tablet 75 mg PO DAILY #90 tabs 10/26/22 Rx amoxicillin 875 mg-potassium 1 tab PO Q12H #20 tabs 11/25/22 Rx clavulanate 125 mg tablet benzonatate 100 mg capsule 100 mg PO TIDP PRN Cough #30 caps 11/25/22 Rx methylprednisolone 4 mg tablets in 4 mg PO DIRECTED #21 tabs 11/25/22 Rx a dose pack New Prescriptions to Start Prescriptions: Allergies Allergy/AdvReac Type Severity Reaction Status Date / Time atorvastatin AdvReac Mild myalgia Verified 10/19/22 09:25 isosorbide AdvReac Severe Headache Uncoded 10/19/22 09:58 Exam Data for Last 24 hours Vital signs and Labs for Last 24 Hours: Temp Pulse Resp BP Pulse Ox O2 Del Method 98.9 F 44 L 17 84/48 L 94 L Room Air 08/09/23 00:00 08/09/23 00:00 08/09/23 00:00 08/09/23 00:00 08/09/23 00:00 08/09/23 00:00 Laboratory Results - last 24 hr 08/08/23 21:30: WBC 12.8 H, RBC 4.25 L, Hgb 13.5 L, Hct 41.8 L, MCV 98.3 H, MCH 31.8 H, MCHC 32.4, RDW 13.5, Plt Count 263, MPV 8.8, Neut % (Auto) 71.4, Lymph % (Auto) 21.7, [place] % (Auto) 5.6, Eos % (Auto) 0.7, Baso % (Auto) 0.5, Neut # (Auto) 9.1 H, Lymph # (Auto) 2.8, [place] # (Auto) 0.7, Eos # (Auto) 0.1, Baso # (Auto) 0.1, PT 10.5, INR 0.97, APTT 26.3, D-Dimer 0.58 H, Sodium 137, Potassium 4.2, Chloride 105, Carbon Dioxide 29, Anion Gap 7.2, BUN 22 H, Creatinine 1.30 H , Estimated Creat Clear 63, Estimated GFR 56 L, Est GFR ( Amer) 68, Glucose 131 H, Calcium 8.8, Total Bilirubin 0.6, AST 202 H, ALT 43, Alkaline Phosphatase 72, Troponin I 39.40 H, Total Protein 6.8, Albumin 4.1, Globulin 2.7, Albumin/Globulin Ratio 1.5 I & O for Last 24 hours: Intake & Output 08/06/23 08/07/23 08/08/23 08/09/23 23:59 23:59 23:59 23:59 Weight 74.843 kg *Routine HEENT Exam Head: Present normocephalic Eye: Present EOMI ENT: Present mucous membranes moist *Routine Neck Exam Neck: Present full ROM *Routine Respiratory Exam Respiratory: Present wheezes and symmetric chest movement *Routine Cardiovascular Exam Cardiovascular: Present bradycardia *Routine Abdominal Exam Abdominal: Present soft and normoactive bowel sounds; Absent tenderness *Routine Rectal Exam Rectal:: deferred *Routine Genitalia Exam Genitalia:: deferred *Routine Extremities Exam Extremities: Present full ROM *Routine Skin Exam Skin: Present intact *Routine Neurological Exam Neurological: Present alert and oriented X3 Assessment and Plan *Assessment and plan (1) ACS (acute coronary syndrome): Status: Acute Category: Medical Code(s): I24.9 - Acute ischemic heart disease, unspecified (2) OVIDIO (acute kidney injury): Status: Acute Category: Medical Code(s): N17.9 - Acute kidney failure, unspecified (3) Hyperlipidemia: Status: Chronic Qualifiers: Hyperlipidemia type: unspecified Qualified Code(s): E78.5 - Hyperlipidemia, unspecified Category: Medical Code(s): E78.5 - Hyperlipidemia, unspecified (4) Coronary arteriosclerosis: Status: Chronic Category: Medical Code(s): I25.10 - Atherosclerotic heart disease of [place] coronary artery without angina pectoris (5) HTN (hypertension): Status: Acute Category: Medical Code(s): I10 - Essential (primary) hypertension (6) Tobacco dependence syndrome: Status: Chronic Category: Medical Code(s): F17.200 - Nicotine dependence, unspecified, uncomplicated Plan 63 year old male presented to [facility] ED for c/o chest pain that started yesterday. PMHX of tobacco abuse, CAD, PAD, hld, and htn. pt states that he was cutting wood when the chest pain started. He states the pain radiated into his back and shoulders and felt that his hearing was impaired. The pain was continued into today so he came to the ED. Upon arrival to the ED his pain radiated into his neck on the left side. He was hypotensive and bradycardic. The pt was given ASA, 1L of LR and 50 mcg of fentanyl for pain. His blood pressure improved with the fluid bolus. His EKG revealed inferior myocardial infarction with elevation in leads 2, 3, and AVF. ED physician consulted Cardiology, please see Dr. Flores's note. The pt was placed on a heparin gtt and received a CTA of his chest that demonstrated no aortic dissection, PE, or aneurysm. His initial troponin was 39.40 and 2nd was 36.30. The ED physician consulted the hospitalist team for further medical management. I admitted the pt to the step down unit. Upon admission he is alert, orientated X 4 and is ambulatory. He reports getting 7 stents in 2017. After arriving to the ICU, he become hypotensive. The pt was started on an epi gtt with goal MAP <65. Cardiology will see pt in the morning ACS -EKG revealed inferior myocardial infarction with elevation in leads 2, 3, and AVF -Cardiology consult for the morning, thank you for the help!! -continue heparin gtt -Epi gtt with goal map <65 OVIDIO -creatinine of 1.30 -1LR of fluid in ED -Repeat BMP in moprning HLD CAD HTN -awaiting home med req TOBACCO ABUSE -refused nicotine patch FULL CODE NPO CARDIOLOGY HEPARIN GTT
[2023-08-09] MEDS: EPINEPHrine 5 MG in 0.9 % SODIUM CHLORIDE 250 ML 6.12 MG IV (01:05)
--- NOTE | 2023-08-09 04:04 | ECG_ITS ---
APPROVED REPORT Exam: Resting ECG HR:82 bpm ECG Measurements Heart Rate 82 AXES NV 148 P 72 QRSd 111 QRS 17 QT 351 T 43 QTc 389 Conclusion SINUS RHYTHM ANTEROLATERAL MYOCARDIAL INFARCTION , OF INDETERMINATE AGE [40+ ms Q WAVE IN I/aVL/V3-V6] ACUTE TN UNCONFIRMED REPORT Electronically signed by : Joce Morley MD 08/09/2023 17:55:19
[2023-08-09 04:07] LABS: Basophils # 0.1 K/mm3 (0-0.2); Basophils % 0.3 % (0.1-2.0); Eosinophils # 0.2 K/mm3 (0.0-0.4); Hematocrit 39.4 % (42.0-52.0); Hemoglobin 12.9 g/dL (14.1-18.0); Lymphocytes # 2.3 K/mm3 (0.7-4.5); Lymphocytes % 12.2 % (10-50); Mean Corpuscular HGB Conc 32.8 g/dL (31.8-35.4); Mean Corpuscular Hemoglobin 32.4 pg (27.0-31.2); Mean Corpuscular Volume 98.7 fl (80-94); Mean Platelet Volume 9.1 fl (7.4-10.4); Monocytes # 0.9 K/mm3 (0.1-1.0); Monocytes % 4.8 % (1.7-9.3); Neutrophils # 15.3 K/mm3 (1.8-7.8); Neutrophils % 81.7 % (37.0-80.0); Platelet Count 323 K/mm3 (142-424); Red Blood Count 3.99 M/mm3 (4.60-6.20); Red Cell Distribution Width 13.7 % (11.5-17.5); White Blood Count 18.7 K/mm3 (4.8-10.8)
[2023-08-09 04:10] LABS: MANUAL DIFFERENTIAL MANUAL DIFFERENTIAL (MANUAL DIFF)
[2023-08-09 04:20] LABS: PTT Heparin (inpatient only) 33.2 Seconds (23.6-34.0)
[2023-08-09] MEDS: 0.9 % SODIUM CHLORIDE 1000ML 500 ML 999 ML IV (04:20)
[2023-08-09] MEDS: HYDROMORPHONE 2MG/ML SYRINGE 1 MG IV ×3 (04:20→18:29)
[2023-08-09 04:29] LABS: Anion Gap 14.3 mEq/L (5-15); Blood Urea Nitrogen 21 mg/dl (9-20); Calcium 8.5 mg/dl (8.4-10.2); Carbon Dioxide 19 mmol/L (22.0-30.0); Chloride 107 mmol/L (98-107); Creatinine Clearance Estimated 75 mL/min (50-200); Estimated Glomerular Filt Rate 68 ml/min (>60); GFR (African American) 82 ML/MIN (>60); Glucose 225 mg/dl (74-100); Potassium 3.3 mmoL/L (3.5-5.1); Sodium 137 mmol/L (136-145)
--- NOTE | 2023-08-09 04:30 | PC.NURSE ---
pt c/o midsternal chest pain 7/10 and headache. EKG obtained and Dr. Yadav notified. MD ordered Dilaudid and NS bolus. Pt stated pain was 4/10 after meds given.
[2023-08-09] MEDS: HEPARIN SODIUM,PORCINE/D5W 500 ML 24 UNIT IV (04:35)
[2023-08-09] MEDS: HEPARIN SODIUM 5,000 UNIT/ML VIAL 4000 UNIT IV (04:38)
[2023-08-09 04:49] LABS: Lymphocytes % 12 % (10-50); Monocytes % 1 % (2-9); Neutrophils % 87 % (42-76); Total Cells Counted 100
[2023-08-09 04:50] LABS: Platelet Estimate Normal; RBC Morphology Normal
--- NOTE | 2023-08-09 08:15 | P.CONPHA_ITS ---
[facility] Pharmacy Heparin Dosing Demographic Data Admission date:: 08/08/23 Date: 08/09/23 Time: 08:15 Allergies Allergy/AdvReac Type Severity Reaction Status Date / Time atorvastatin AdvReac Mild myalgia Verified 10/19/22 09:25 isosorbide AdvReac Unknown Headache Verified 08/09/23 07:42 Height: 1.7 m Weight: 74.843 kg Indication Medication therapy:: Heparin Current Indications:: ACUTE CORONARY SYNDROME - LOW DOSE PROTOCOL Current Active Problems (Updated 08/09/23 @ 17:11 by Rina Calvert APRN) ST elevation myocardial infarction (STEMI) of inferior wall (Acute) OVIDIO (acute kidney injury) (Acute) HTN (hypertension) (Acute) Junctional bradycardia (Acute) ACS (acute coronary syndrome) (Acute) Angina pectoris (Acute) Aneurysm of infrarenal abdominal aorta (Chronic) Tobacco dependence syndrome (Chronic) Stented coronary artery (Chronic) Coronary arteriosclerosis (Chronic) Hyperlipidemia (Chronic) Hypertensive heart disease (Chronic) CVA?: No Bleeding problem?: No Kidney disease?: No NV?: Yes Additional History:: HYPERTENSION, ACUTE CORONARY SYNDROME, ANGINA, ABDOMINAL AORTIC ANEURYSM, PERIPHERAL ARTERY DISEASE, CORONARY ARTERY DISEASE WITH HISTORY OF STENTS Desired PTT range:: 50-75 seconds Comments:: BASELINE PTT: 26.3 SECONDS Labs Anticoagulation Lab Results:: 08/08/23 08/09/23 21:30 04:00 Hgb 13.5 L 12.9 L Hct 41.8 L 39.4 L Plt Count 263 323 Monitoring Dose Monitor 1: Date: 08/08/23 Time: 21:30 PTT Result:: BASELINE PTT: 26.3 SECONDS Infusion Rate:: STARTED HEPARIN DRIP AT 900 UNITS/HOUR = 18 ML/HOUR AND BOLUSED 4000 UNITS HEPARIN IV ONCE. Dose Monitor 2: Date: 08/09/23 Time: 04:00 PTT Result:: 33.2 SECONDS Infusion Rate:: INCREASED HEPARIN DRIP TO 1200 UNITS/HOUR = 24 ML/HOUR AND BOLUSED 4000 UNITS HEPARIN IV ONCE. Dose Monitor 3: Date: 08/09/23 Time: 10:30 PTT Result:: 50.3 SECONDS Infusion Rate:: CONTINUE CURRENT HEPARIN DRIP RATE OF 1200 UNITS/HOUR = 24 ML/HOUR Dose Monitor 4: Date: 08/09/23 Time: 15:00 PTT Result:: 48.0 SECONDS Infusion Rate:: INCREASE HEPARIN DRIP TO 1350 UNITS/HOUR = 27 ML/HOUR. NO BOLUS SINCE PATIENT GOING TO DIESEL ENGINE OPERATOR AND WILL RECEIVE HEPARIN BOLUSES THERE. Comment:: PTT DRAWN AT 20:53 BUT HEPARIN DRIP STOPPED BEFORE THAT POINT FOLLOWING DIESEL ENGINE OPERATOR INTERVENTIONS. PATIENT STARTED ON DAPT (EFFIENT AND ASPIRIN). Core Measures Is INR > or = 2 at discharge?: No Most Recent Labs:: Laboratory Results - last 24 hr 08/08/23 21:30: WBC 12.8 H, RBC 4.25 L, Hgb 13.5 L, Hct 41.8 L, MCV 98.3 H, MCH 31.8 H, MCHC 32.4, RDW 13.5, Plt Count 263, MPV 8.8, Neut % (Auto) 71.4, Lymph % (Auto) 21.7, [place] % (Auto) 5.6, Eos % (Auto) 0.7, Baso % (Auto) 0.5, Neut # (Auto) 9.1 H, Lymph # (Auto) 2.8, [place] # (Auto) 0.7, Eos # (Auto) 0.1, Baso # (Auto) 0.1, PT 10.5, INR 0.97, APTT 26.3, D-Dimer 0.58 H, Sodium 137, Potassium 4.2, Chloride 105, Carbon Dioxide 29, Anion Gap 7.2, BUN 22 H, Creatinine 1.30 H , Estimated Creat Clear 63, Estimated GFR 56 L, Est GFR ( Amer) 68, Glucose 131 H, Calcium 8.8, Total Bilirubin 0.6, AST 202 H, ALT 43, Alkaline Phosphatase 72, Troponin I 39.40 H, Total Protein 6.8, Albumin 4.1, Globulin 2.7, Albumin/Globulin Ratio 1.5 08/09/23 00:20: Troponin I 36.30 H 08/09/23 04:00: WBC 18.7 H D, RBC 3.99 L, Hgb 12.9 L, Hct 39.4 L, MCV 98.7 H, MCH 32.4 H, MCHC 32.8, RDW 13.7, Plt Count 323, MPV 9.1, Neut % (Auto) 81.7 H, Lymph % (Auto) 12.2, [place] % (Auto) 4.8, Eos % (Auto) 1.0, Baso % (Auto) 0.3, Neut # (Auto) 15.3 H, Lymph # (Auto) 2.3, [place] # (Auto) 0.9, Eos # (Auto) 0.2, Baso # (Auto) 0.1, Total Counted 100, Neutrophils % (Manual) 87 H, Lymphocytes % (Manual) 12, Monocytes % (Manual) 1 L, Platelet Estimate Normal, RBC Morphology Normal, APTT 33.2, Sodium 137, Potassium 3.3 L D, Chloride 107, Carbon Dioxide 19 L, Anion Gap 14.3, BUN 21 H, Creatinine 1.10, Estimated Creat Clear 75, Estimated GFR 68, Est GFR ( Amer) 82 D, Glucose 225 H D, Calcium 8.5, Troponin I 26.90 H If INR was < than 2.0 why was therapy stopped?: PATIENT STARTED ON DAPT (EFFIENT AND ASPIRIN) FOLLOWING DIESEL ENGINE OPERATOR. Were Heparin and Warfarin started on the same day?: No If not, why?: PATIENT STARTED ON DAPT (EFFIENT AND ASPIRIN) FOLLOWING DIESEL ENGINE OPERATOR.
--- NOTE | 2023-08-09 09:16 | CT_ITS ---
FINAL REPORT CLINICAL HISTORY: epigastric pain COMPARISON: None FINDINGS: Axial CT images of the abdomen and pelvis were obtained without intravenous contrast. Coronal and sagittal reformatted images were also obtained.This study was performed with techniques to keep radiation doses as low as reasonably achievable (ALARA). Individualized dose reduction techniques using automated exposure control or adjustment of mA and/or kV according to the patient's size were employed. Abdomen: Scarring is present in the lung bases bilaterally. There is no evidence of renal stone or hydronephrosis.The liver, spleen and pancreas have an unremarkable, unenhanced appearance. The patient apparently underwent CTA of the chest at 10 PM the night before this exam was performed, responsible for the contrast present in the gallbladder, renal collecting system, and urinary bladder. There is an infrarenal abdominal aortic aneurysm measuring 4.1 cm in greatest diameter. A small hiatal hernia is present. There is a small umbilical hernia present containing fat. No mass or adenopathy is seen. No inflammatory process is identified. Pelvis: Images of the pelvis reveal no evidence of ureteral dilation or ureteral stone.No mass or abnormal fluid collection is identified. There is mild bladder wall thickening, likely inflammatory. IMPRESSION: Infrarenal abdominal aortic aneurysm measuring 4.1 cm in greatest diameter. Mild bladder wall thickening, likely inflammatory. Reviewed, Interpreted and Dictated by Lalo Jones III, MD Transcribed by Maral Lucas Authenticated and [facility]
[2023-08-09 11:07] LABS: Lipase 88 U/L (23-300)
[2023-08-09 11:09] LABS: PTT Heparin (inpatient only) 50.3 Seconds (23.6-34.0)
[2023-08-09 13:13] LABS: Basophils % 0.1 % (0.1-2.0); Eosinophils % 0.1 % (0.1-12.0); Hematocrit 38.7 % (42.0-52.0); Hemoglobin 12.5 g/dL (14.1-18.0); Lymphocytes # 1.3 K/mm3 (0.7-4.5); Lymphocytes % 7.6 % (10-50); Mean Corpuscular HGB Conc 32.3 g/dL (31.8-35.4); Mean Corpuscular Hemoglobin 32.3 pg (27.0-31.2); Mean Platelet Volume 9.4 fl (7.4-10.4); Monocytes # 0.9 K/mm3 (0.1-1.0); Monocytes % 5.3 % (1.7-9.3); Neutrophils # 15.1 K/mm3 (1.8-7.8); Neutrophils % 86.9 % (37.0-80.0); Platelet Count 279 K/mm3 (142-424); Red Blood Count 3.87 M/mm3 (4.60-6.20); Red Cell Distribution Width 13.6 % (11.5-17.5); White Blood Count 17.3 K/mm3 (4.8-10.8)
[2023-08-09 13:18] LABS: Anion Gap 14.7 mEq/L (5-15); Blood Urea Nitrogen 19 mg/dl (9-20); Carbon Dioxide 18 mmol/L (22.0-30.0); Chloride 108 mmol/L (98-107); Creatinine Clearance Estimated 75 mL/min (50-200); Estimated Glomerular Filt Rate 68 ml/min (>60); GFR (African American) 82 ML/MIN (>60); Glucose 194 mg/dl (74-100); Potassium 3.7 mmoL/L (3.5-5.1); Sodium 137 mmol/L (136-145)
--- NOTE | 2023-08-09 13:27 | IR_ITS ---
APPROVED REPORT Patient Location: Inpatient System Support Administrator: WILDA Hernandez RT (R) PROCEDURES Left heart catheterization Left ventriculogram Selective coronary angiogram Drug-eluting stent deployment to the left main artery extending into the proximal LAD INDICATION Acute inferior ST elevation myocardial infarction, Coronary artery disease, Severe left main disease with patient being a poor candidate for bypass surgery Informed consent was obtained prior to the procedure. COMPLICATIONS None Estimated Blood Loss: Less than 10 mls TECHNIQUE One percent lidocaine used to anesthetize the right anterior aspect of the wrist. The right radial artery was accessed via the Seldinger technique. A 6 [place] sheath was placed in the right radial artery. 2.5 mg of Verapamil, 800 mcg of nitroglycerin, 1mg Lidocaine and 5000 U Heparin were given through the arterial sheath. The papa catheter was also used to perform left heart catheterization, left ventriculogram and selective coronary angiogram. At the end of the diagnostic angiogram therapeutic heparin was administered giving a therapeutic ACT. The patient had a favorable plaque deposition in the distal left main artery which was predominantly on the LAD side of the left main artery. Because of this the circumflex arteries ostium was widely patent free of disease. The guide catheter was placed in left main artery followed by Choice PT extra-support wire being placed down the LAD. A 3.5 x 22 mm Tim[place]o frontier stent was placed in the left main artery stenting of the proximal LAD at 20 mamie reducing the severe stenosis to 0%. NATALIE-3 flow was present before and after the procedure. At the end the procedure the apparatus was removed the sheath was removed and hemostasis was achieved using TR banding patient was transferred to the postop putting in stable condition ANGIOGRAPHIC RESULTS The left main artery Has an ostial 50 to 60% stenosis with a distal 60% stenosis. The left anterior descending artery Has a wide patent ostial segment followed by 40% proximal and mid segment. There is a mid LAD stent which is widely patent with mild in-stent restenosis. The mid LAD has a concentric 80% stenosis at a 2.75 mm vessel. The circumflex artery Is a nondominant vessel with proximal 20 and 30% stenoses. The second obtuse marginal artery has an ostial 70 to 80% stenosis and is 1.75 mm in diameter The right coronary artery Is a dominant vessel and occluded/thrombosed distal to the RV marginal branch The LEMONS ventriculogram reveals Dilated ventricle inferior wall hypokinesis estimate ejection fraction 40% The left ventricular end-diastolic pressure Severely elevated at 35 to 40 mmHg IMPRESSION Acute thrombosis to the mid to distal dominant right coronary artery with extensive thrombosis throughout the distal vessel with no collateralization or NATALIE flow Severe left main stenosis as described above Successful stenting of the ostial left main artery extending the proximal ID severe disease reduced to 0% 1 drug-eluting stent Persistent severe stenosis in the mid LAD which is best managed medically at this time LV dysfunction estimated at 40% with inferior wall hypokinesis Severely elevated LVEDP PLAN 1. Effient 10 mg daily plus aspirin 81 mg daily 2. Patient would benefit from diuresis based on LVEDP being elevated 3. Standard therapy for ischemic heart disease which should include Entresto plus beta-blockers if patient's able to hemodynamically and electrically tolerate 4. Avoidance of tobacco products 5. Take rehabilitation 6. Commend formal echo prior to discharge and place a LifeVest if patient is a candidate both from an ejection fraction standpoint and socially Electronically signed by : Freddy Yadav MD 08/09/2023 16:20:27
--- NOTE | 2023-08-09 15:25 | PC.NURSE ---
Pt. to denture laboratory technician via wheelchair. Heparin drip paused at this time.
[2023-08-09] MEDS: 0.9 % SODIUM CHLORIDE 500 ML 25 ML IV (15:41)
[2023-08-09] MEDS: HEPARIN 1,000 UNITS/500ML NS (CATH LAB) 3000 UNIT IV (15:41)
[2023-08-09] MEDS: LIDOCAINE 1% 10ML MDV 20 ML IJ (15:41)
[2023-08-09] MEDS: NITROGLYCERIN 800MCG/8ML SYR (CATH LAB) 800 MCG IA (15:42)
[2023-08-09] MEDS: HEPARIN 1,000 UNITS/ML 10ML VIAL (CATH LAB) 10000 UNIT IV (15:42)
[2023-08-09] MEDS: diphenhydrAMINE 50MG/ML VIAL 50 MG IV (15:42)
[2023-08-09] MEDS: VERAPAMIL 2.5MG/ML 2ML VIAL 2.5 MG IV (15:42)
[2023-08-09] MEDS: FENTANYL 100MCG/2ML VIAL 50 MCG IV (16:17)
[2023-08-09] MEDS: PRASUGREL 10MG TAB 60 MG PO (16:43)
--- NOTE | 2023-08-09 17:00 | PC.NURSE ---
Discontinue heparin drop per Dr. Yadav.
--- NOTE | 2023-08-09 17:07 | EXP.CARD.CON ---
History of Present Illness History of Present Illness Consult date: 08/09/23 Requesting physician: Warren Yeboah Consult reason: chest pain Chief complaint: chest pain History of present illness: This is a 63-year-old white gentleman who presented to the emergency department with complaints of chest pain. The patient has a past medical history of coronary artery disease, PAD, hypertension, hyperlipidemia and tobacco use. Patient states he was cutting wood when he had sudden onset of chest pain starting Wednesday. He states it radiated to his back and shoulders and felt like his hearing was impaired. The patient states that his chest pain continued all throughout the day on Wednesday he still had the pain on Wednesday when he woke up. He states that his daughters made him come to the emergency department because of the persistent chest pain he was having. When the patient got to the emergency department he was hypotensive and bradycardic. The patient was found to have a STEMI on his EKG but he had already cued out so emergent left cardiac catheterization was postponed at that time. The patient had been having his AZ for greater than 12 hours so the patient was not emergently taken to the cardiac Clinical Trial Associate. His initial troponin was 39.40 and a second troponin was 36.30. The patient was admitted to the hospital for observation. This morning he states that he is still having severe chest pain. He states that it is constant and is actually worsened today from yesterday. He is still short of breath and it is still radiating to his back and shoulders. He denies any fever, chills, nausea, vomiting, diarrhea, PND or orthopnea. [facility] Disclaimer: The information contained in this section may have been updated after the patient was seen, as this information can be updated by other users. Medical History (Updated 08/09/23 @ 17:11 by Rina Calvert APRN) Abdominal aortic aneurysm (AAA) Abnormal cardiovascular stress test Angina pectoris Atypical angina Claudication Coronary arteriosclerosis Dyspnea Hyperlipidemia Hypertensive heart disease PAD (peripheral artery disease) ST elevation myocardial infarction (STEMI) of inferior wall Tobacco dependence syndrome Typical angina Social History Smoking Status: Current every day smoker tobacco type: cigarettes packs per day: 1 alcohol intake: never substance use type: denies use current occupational status: unemployed Travel in the last 8 weeks: Inside the [place] household members: none housing: house Review of Systems Review of Systems Review of systems:: pertinent systems reviewed and negative unless documented below Constitutional Constitutional: Reports system reviewed and no additional complaints, except as documented Eyes Eyes: Reports system reviewed and no additional complaints, except as documented ENT Ears, Nose, Mouth, and Throat: Reports system reviewed and no additional complaints, except as documented and Reports vertigo *Cardiovascular Cardiovascular: Reports system reviewed and no additional complaints, except as documented, Reports chest pain, Reports chest pain at rest, Reports chest pain with activity, Reports dyspnea, Reports dyspnea on exertion and Reports radiating jaw, neck or arm pain *Respiratory Respiratory: Reports system reviewed and no additional complaints, except as documented, Reports dyspnea and Reports dyspnea on exertion *Gastrointestinal Gastrointestinal: Reports system reviewed and no additional complaints, except as documented *Genitourinary Genitourinary: Reports system reviewed and no additional complaints, except as documented *Musculoskeletal Musculoskeletal: Reports system reviewed and no additional complaints, except as documented Integumentary/Breasts Skin/Breast: Reports system reviewed and no additional complaints, except as documented *Neurologic Neurologic: Reports vertigo Psychiatric Psychiatric: Reports system reviewed and no additional complaints, except as documented Endocrine Endocrine: Reports system reviewed and no additional complaints, except as documented Hematologic/Lymphatic Hematologic/Lymphatic: Reports system reviewed and no additional complaints, except as documented Allergic/Immunologic Allergic/Immunologic: Reports system reviewed and no additional complaints, except as documented Exam Data for Last 24 hours Vital signs and Labs for Last 24 Hours: Temp Pulse Resp BP Pulse Ox O2 Del Method O2 Flow Rate 98.7 F 61 17 106/66 L 90 L Room Air 3 08/09/23 13:58 08/09/23 16:45 08/09/23 16:45 08/09/23 16:45 08/09/23 16:45 08/09/23 16:45 08/09/23 15:00 Laboratory Results - last 24 hr 08/08/23 21:30: WBC 12.8 H, RBC 4.25 L, Hgb 13.5 L, Hct 41.8 L, MCV 98.3 H, MCH 31.8 H, MCHC 32.4, RDW 13.5, Plt Count 263, MPV 8.8, Neut % (Auto) 71.4, Lymph % (Auto) 21.7, Petroleum % (Auto) 5.6, Eos % (Auto) 0.7, Baso % (Auto) 0.5, Neut # (Auto) 9.1 H, Lymph # (Auto) 2.8, [place] # (Auto) 0.7, Eos # (Auto) 0.1, Baso # (Auto) 0.1, PT 10.5, INR 0.97, APTT 26.3, D-Dimer 0.58 H, Sodium 137, Potassium 4.2, Chloride 105, Carbon Dioxide 29, Anion Gap 7.2, BUN 22 H, Creatinine 1.30 H, Estimated Creat Clear 63, Estimated GFR 56 L, Est GFR ( Amer) 68, Glucose 131 H, Calcium 8.8, Total Bilirubin 0.6, AST 202 H, ALT 43, Alkaline Phosphatase 72, Troponin I 39.40 H, Total Protein 6.8, Albumin 4.1, Globulin 2.7, Albumin/Globulin Ratio 1.5 08/09/23 00:20: Troponin I 36.30 H 08/09/23 04:00: WBC 18.7 H D, RBC 3.99 L, Hgb 12.9 L, Hct 39.4 L, MCV 98.7 H, MCH 32.4 H, MCHC 32.8, RDW 13.7, Plt Count 323, MPV 9.1, Neut % (Auto) 81.7 H, Lymph % (Auto) 12.2, [place] % (Auto) 4.8, Eos % (Auto) 1.0, Baso % (Auto) 0.3, Neut # (Auto) 15.3 H, Lymph # (Auto) 2.3, [place] # (Auto) 0.9, Eos # (Auto) 0.2, Baso # (Auto) 0.1, Total Counted 100, Neutrophils % (Manual) 87 H, Lymphocytes % (Manual) 12, Monocytes % (Manual) 1 L, Platelet Estimate Normal, RBC Morphology Normal, APTT 33.2, Sodium 137, Potassium 3.3 L D, Chloride 107, Carbon Dioxide 19 L, Anion Gap 14.3, BUN 21 H, Creatinine 1.10, Estimated Creat Clear 75, Estimated GFR 68, Est GFR ( Amer) 82 D, Glucose 225 H D, Calcium 8.5, Troponin I 26.90 H 08/09/23 10:32: WBC 17.3 H, RBC 3.87 L, Hgb 12.5 L, Hct 38.7 L, MCV 100.0 H, MCH 32.3 H, MCHC 32.3, RDW 13.6, Plt Count 279, MPV 9.4, Neut % (Auto) 86.9 H, Lymph % (Auto) 7.6 L, [place] % (Auto) 5.3, Eos % (Auto) 0.1, Baso % (Auto) 0.1, Neut # (Auto) 15.1 H, Lymph # (Auto) 1.3, [place] # (Auto) 0.9, Eos # (Auto) 0.0, Baso # (Auto) 0.0, APTT 50.3 H*, Sodium 137, Potassium 3.7, Chloride 108 H, Carbon Dioxide 18 L, Anion Gap 14.7, BUN 19, Creatinine 1.10, Estimated Creat Clear 75, Estimated GFR 68, Est GFR ( Amer) 82, Glucose 194 H, Calcium 8.0 L, Lipase 88 08/09/23 14:45: APTT 48.0 H I & O for Last 24 hours: Intake & Output 08/06/23 08/07/23 08/08/23 08/09/23 23:59 23:59 23:59 23:59 Intake Total 228.378 / 228.378 Output Total 700 / 700 Balance -471.622 / -471.622 Weight 165 lb 165 lb 0.009 oz Constitutional Constitutional: no acute distress and average body habitus *Routine HEENT Exam Head: Present normocephalic and atraumatic ENT: Present mucous membranes moist *Routine Neck Exam Neck: Present supple, full ROM and normal carotid upstroke; Absent JVD, carotid bruit or lymphadenopathy *Routine Respiratory Exam Respiratory: Present CTA bilaterally, normal respiratory effort, able to speak in complete sentences and symmetric chest movement *Routine Cardiovascular Exam Cardiovascular: Present RRR, Normal S1 and Normal S2; Absent murmur or gallop *Routine Abdominal Exam Abdominal: Present soft and normoactive bowel sounds; Absent tenderness, distended or organomegaly *Routine Extremities Exam Extremities: Present full ROM, pulses intact and normal capillary refill; Absent cyanosis, clubbing or edema *Routine Skin Exam Skin: Present intact and warm; Absent erythema *Routine Neurological Exam Neurological: Present alert, oriented X3 and CN II-XII intact; Absent sensory deficit or motor deficit Routine Psychiatric Exam Psychiatric: Present normal affect Meds Home Medications and Allergies Home Medications Medication Instructions Recorded Confirmed Type No Known Home Medications 08/09/23 08/09/23 History New Prescriptions to Start Prescriptions: Allergies Allergy/AdvReac Type Severity Reaction Status Date / Time atorvastatin AdvReac Mild myalgia Verified 10/19/22 09:25 isosorbide AdvReac Unknown Headache Verified 08/09/23 07:42 Assessment and Plan *Assessment and plan (1) ST elevation myocardial infarction (STEMI) of inferior wall: Status: Acute Category: Medical Code(s): I21.19 - ST elevation (STEMI) myocardial infarction involving other coronary artery of inferior wall (2) Angina pectoris: Status: Acute Category: Medical Code(s): I20.9 - Angina pectoris, unspecified (3) Coronary arteriosclerosis: Status: Chronic Category: Medical Code(s): I25.10 - Atherosclerotic heart disease of [place] coronary artery without angina pectoris (4) Hyperlipidemia: Status: Chronic Qualifiers: Hyperlipidemia type: unspecified Qualified Code(s): E78.5 - Hyperlipidemia, unspecified Category: Medical Code(s): E78.5 - Hyperlipidemia, unspecified (5) Hypertensive heart disease: Status: Chronic Qualifiers: Heart failure presence: unspecified whether heart failure present Qualified Code(s): I11.9 - Hypertensive heart disease without heart failure Category: Medical Code(s): I11.9 - Hypertensive heart disease without heart failure (6) Stented coronary artery: Status: Chronic Category: Surgical Code(s): Z95.5 - Presence of coronary angioplasty implant and graft (7) Tobacco dependence syndrome: Status: Chronic Category: Medical Code(s): F17.200 - Nicotine dependence, unspecified, uncomplicated (8) Aneurysm of infrarenal abdominal aorta: Status: Chronic Qualifiers: Presence of rupture: unspecified whether ruptured Qualified Code(s): I71.43 - Infrarenal abdominal aortic aneurysm, without rupture Category: Medical Code(s): I71.4 - Abdominal aortic aneurysm, without rupture Plan Plan: 1. The patient presented to the emergency department with chest pain and pressure. The patient was found to have a late STEMI. He had already cued out from his STEMI so he was not taken emergently to the Clinical Trial Associate. He is still having symptoms of unstable angina at this morning. Will plan to proceed with left cardiac catheterization today to evaluate his coronary artery disease. 2. The patient has been educated the risk and benefits of proceeding with left cardiac catheterization. The patient verbalized understanding and is agreeable in proceeding with the procedure. 3. The patient be n.p.o. in preparation for left cardiac catheterization. 4. Will get an echocardiogram to evaluate his LV function. 5. His blood pressure is well-controlled. 6. His LDL goal is less than 55. He will be started on a statin. 7. Aspirin 81 mg daily. 8. He does have a history of carotid artery stenosis. Will repeat a carotid ultrasound. 9. No lisinopril or metoprolol at this time due to his blood pressure and heart rate being on the lower side. 10. Further recommendations were made pending the patient's response to treatment the results of his left cardiac catheterization and echocardiogram today. Thank you for the opportunity to help participate in the care of this patient. All recommendations and orders are per Dr. Burden. AMB Pre-cath Criteria Pre-cath considerations: Clinical evaluation and indication for coronary angiography includes:: know CAD, new onset angina <= 2 months and worsening angina Patient is describing chest pain symtom as:: typical angina Clinical risk factors:: CAD, PAD, HTN, HLD, Tobaccco use, STEMI, elevated troponin Risks and benefits:: We will plan to proceed with LHC/coronary angiography with right radial access. The patient has been educated on the risks and benefits of proceeding with LHC/coronary angiography with right radial access. The patient verbalized understanding and is agreeable in proceeding with the procedure.
[2023-08-09] MEDS: FUROSEMIDE 40MG/4ML VIAL 40 MG IV (17:21)
[2023-08-09] MEDS: IOPAMIDOL-370 (76%);100ML BOTTLE 90 ML IV (17:22)
[2023-08-09 17:30] LABS: CATHL Activated Clotting Time > 400 SEC (74-125)
--- NOTE | 2023-08-09 17:38 | XR_ITS ---
PROCEDURE INFORMATION: Exam: XR Chest Exam date and time: 08/09/2023 5:49 PM Age: 63 years old Clinical indication: Shortness of breath; Additional info: SOB TECHNIQUE: Imaging protocol: Radiologic exam of the chest. Views: 1 view. COMPARISON: CT ANGIO CHEST 08/08/2023 9:57 PM FINDINGS: Lungs: No evidence of acute pulmonary disease or infiltrates Pleural spaces: No large effusion or pneumothorax. Heart/Mediastinum: No evidence of mediastinal widening or cardiac silhouette enlargement; the mediastinum and heart appear within normal limits for contour and size. Diaphragm: There is elevation of the right hemidiaphragm. Bones/joints: No evidence of acute osseous abnormalities within the visualized portions of the thoracic spine and ribs. Osseous structures appear appropriate for patient age. IMPRESSION: No dense parenchymal consolidation, pleural effusion, or pneumothorax.
[2023-08-09] MEDS: IPRATROPIUM/ALBUTEROL 3 ML NEB IH (17:58)
[2023-08-09] MEDS: ATORVASTATIN 40MG TABLET 80 MG PO (20:50)
[2023-08-09 21:16] LABS: PTT Heparin (inpatient only) 33.9 Seconds (23.6-34.0)
--- NOTE | 2023-08-09 23:45 | PC.NURSE ---
Called Dr. Yadav approximately at 23:00 regarding current patient status. Mr Mays had recurrent BP readings of SBP <90 and MAP <65 for 15 mins. Mr Mays was sleeping and upon awakening and repositioning the BP cuff still had hypotensive blood pressures. Informed Dr. Yadav that Mr Mays was mentating appropriately and otherwise asymptomatic. He stated to continue to monitor and notify if he became symptomatic.
[2023-08-10] VITALS (26 sets, daily range): BP systolic 80–113; BP diastolic 48–65; PULSE 52–82; RESP 17–34; TEMP 37.1–38.3; O2SAT 87–96; BMI 25.9
[2023-08-10] MEDS: HYDROMORPHONE 2MG/ML SYRINGE 1 MG IV (05:10)
--- NOTE | 2023-08-10 05:35 | ECG_ITS ---
APPROVED REPORT Exam: Resting ECG HR:51 bpm ECG Measurements Heart Rate 51 AXES MS 147 P 51 QRSd 112 QRS -37 QT 414 T -25 QTc 391 Conclusion SINUS BRADYCARDIA LATERAL MYOCARDIAL INFARCTION , PROBABLY OLD [40+ ms Q WAVE AND/OR ST/T ABNORMALITY IN I/aVL/V5/V6] ACUTE MS UNCONFIRMED REPORT Electronically signed by : Joce Morley MD 08/10/2023 20:13:33
[2023-08-10 06:23] LABS: Anion Gap 7.8 mEq/L (5-15); Blood Urea Nitrogen 20 mg/dl (9-20); Calcium 8.2 mg/dl (8.4-10.2); Carbon Dioxide 25 mmol/L (22.0-30.0); Chloride 107 mmol/L (98-107); Creatinine Clearance Estimated 82 mL/min (50-200); Estimated Glomerular Filt Rate 86 ml/min (>60); GFR (African American) 104 ML/MIN (>60); Glucose 116 mg/dl (74-100); Potassium 3.8 mmoL/L (3.5-5.1); Sodium 136 mmol/L (136-145)
[2023-08-10] MEDS: DOPAMINE HCL/D5W 250 ML 7.01 MG IV ×2 (06:28→20:23)
[2023-08-10 06:34] LABS: Basophils % 0.3 % (0.1-2.0); Hematocrit 36.5 % (42.0-52.0); Lymphocytes # 1.9 K/mm3 (0.7-4.5); Lymphocytes % 14.3 % (10-50); Mean Corpuscular HGB Conc 32.9 g/dL (31.8-35.4); Mean Corpuscular Hemoglobin 32.1 pg (27.0-31.2); Mean Corpuscular Volume 97.6 fl (80-94); Mean Platelet Volume 9.4 fl (7.4-10.4); Monocytes # 0.7 K/mm3 (0.1-1.0); Monocytes % 5.7 % (1.7-9.3); Neutrophils # 10.3 K/mm3 (1.8-7.8); Neutrophils % 79.6 % (37.0-80.0); Platelet Count 234 K/mm3 (142-424); Red Blood Count 3.74 M/mm3 (4.60-6.20); Red Cell Distribution Width 13.7 % (11.5-17.5); White Blood Count 12.9 K/mm3 (4.8-10.8)
[2023-08-10 06:44] LABS: Alanine Aminotransferase 35 U/L (12-78); Albumin Level 3.3 g/dl (3.5-5.0); Alkaline Phosphatase 72 U/L (38-126); Aspartate Amino Transferase 114 U/L (17-59); Chol/HDL Ratio 6.2 (1-3.5); Cholesterol 185 mg/dl (140-200); HDL Cholesterol 30 mg/dl (40-60); Total Protein,Serum 5.9 g/dl (6.3-8.2); Triglycerides 118 mg/dl (30-150); VLDL Cholesterol 24 mg/dL (0-40)
[2023-08-10 06:55] LABS: Direct LDL Cholesterol 121.61 mg/dL (100-129)
[2023-08-10] MEDS: ASPIRIN EC 81MG TABLET 81 MG PO (08:42)
[2023-08-10] MEDS: FUROSEMIDE 40MG/4ML VIAL 40 MG IV ×2 (08:42→17:10)
[2023-08-10] MEDS: PRASUGREL 10MG TAB 10 MG PO (08:42)
--- NOTE | 2023-08-10 13:25 | PC.NURSE ---
STOPPED DOPAMINE DRIP PER TELEPHONE ORDER FROM LORENA LOCKETT WITH CARDIOLOGY, MD DESAI WANTS TO SEE UNDERLYING RHYTHM WITHOUT DOPAMINE ON
--- NOTE | 2023-08-10 14:28 | P.PN_ITS ---
Subjective Subjective Date: 08/10/23 Time: 13:30 Principal diagnosis: STEMI Interval history: The patient states that his chest pain has resolved. He denies any shortness of breath this morning. He does states that he feels really tired and fatigued. He denies any fever, chills, nausea, vomiting, diarrhea, PND or orthopnea. The patient underwent left cardiac catheterization yesterday and was found to have an active thrombus in the mid to distal dominant right coronary artery with extensive thrombosis throughout the vessel and no categorization or NATALIE flow. He had severe left main disease with successful stenting to the ostial left main. He had persistent disease to the mid LAD which was best managed medically at this time. Patient did become bradycardic and hypotensive through the night and was started on a dopamine drip. Exam Data for Last 24 hours Vital signs and Labs for Last 24 Hours: Temp Pulse Resp BP Pulse Ox O2 Del Method O2 Flow Rate 100.9 F H 71 22 92/58 L 91 L Nasal Cannula 4 08/10/23 12:00 08/10/23 14:00 08/10/23 14:00 08/10/23 14:00 08/10/23 14:00 08/10/23 14:00 08/10/23 14:00 Laboratory Results - last 24 hr 08/09/23 14:45: APTT 48.0 H 08/09/23 17:05: Activated Clotting Time > 400 H* 08/09/23 20:53: APTT 33.9 08/10/23 05:28: WBC 12.9 H D, RBC 3.74 L, Hgb 12.0 L, Hct 36.5 L, MCV 97.6 H, MCH 32.1 H, MCHC 32.9, RDW 13.7, Plt Count 234, MPV 9.4, Neut % (Auto) 79.6, Lymph % (Auto) 14.3, [place] % (Auto) 5.7, Eos % (Auto) 0.0 L, Baso % (Auto) 0.3, Neut # (Auto) 10.3 H, Lymph # (Auto) 1.9, [place] # (Auto) 0.7, Eos # (Auto) 0.0, B aso # (Auto) 0.0, Sodium 136, Potassium 3.8, Chloride 107, Carbon Dioxide 25, Anion Gap 7.8, BUN 20, Creatinine 0.90, Estimated Creat Clear 82, Estimated GFR 86, Est GFR ( Amer) 104 D, Glucose 116 H D, Calcium 8.2 L, Total Bilirubin 1.0, Direct Bilirubin 0.0, Conjugated Bilirubin 0.0, Indirect Bilirubin 1.0 H, Unconjugated Bilirubin 1.0, AST 114 H D, ALT 35, Alkaline Phosphatase 72, Total Protein 5.9 L, Albumin 3.3 L D, Triglycerides 118, Cholesterol 185, LDL Cholesterol Direct 121.61, VLDL Cholesterol 24, HDL Cholesterol 30 L, Cholesterol/HDL Ratio 6.2 H I & O for Last 24 hours: Intake & Output 08/07/23 08/08/23 08/09/23 08/10/23 23:59 23:59 23:59 23:59 Intake Total 228.378 / 220.340 8149 / 1138 Output Total 1750 / 1750 1200 / 1200 Balance -1521.622 / -1521.622 -62 / -62 Weight 165 lb 165 lb 0.009 oz 164 lb 14.492 oz Constitutional Constitutional: no acute distress and average body habitus *Routine HEENT Exam Head: Present normocephalic and atraumatic ENT: Present mucous membranes moist *Routine Neck Exam Neck: Present supple, full ROM and normal carotid upstroke; Absent JVD, carotid bruit or lymphadenopathy *Routine Respiratory Exam Respiratory: Present CTA bilaterally, normal respiratory effort, able to speak in complete sentences and symmetric chest movement *Routine Cardiovascular Exam Cardiovascular: Present RRR, Normal S1 and Normal S2; Absent murmur or gallop *Routine Abdominal Exam Abdominal: Present soft and normoactive bowel sounds; Absent tenderness, distended or organomegaly *Routine Extremities Exam Extremities: Present full ROM, pulses intact and normal capillary refill; Absent cyanosis, clubbing or edema *Routine Skin Exam Skin: Present intact and warm; Absent erythema *Routine Neurological Exam Neurological: Present alert, oriented X3 and CN II-XII intact; Absent sensory deficit or motor deficit Routine Psychiatric Exam Psychiatric: Present normal affect Progress Note: A&P Assessment and plan (1) ST elevation myocardial infarction (STEMI) of inferior wall: Status: Acute (2) Coronary arteriosclerosis: Status: Chronic (3) Hyperlipidemia: Status: Chronic (4) Hypertensive heart disease: Status: Chronic (5) Stented coronary artery: Status: Chronic (6) Tobacco dependence syndrome: Status: Chronic (7) Aneurysm of infrarenal abdominal aorta: Status: Chronic (8) Sinus bradycardia: Status: Acute Assessment and Plan Assessment and Plan for All Diagnoses:: Plan: 1. The patient presented to the emergency department with chest pain and pressure. The patient was found to have a late STEMI. He had already Q-waved out from his STEMI so he was not taken emergently to the Claims [facility]. However he did undergo a left cardiac catheterization yesterday and was found to have an active thrombus to the right coronary artery and the artery was completely thrombosed with no collateralization or NATALIE flow. The patient did have stenting to severe disease to the left main artery. He had persistent severe mid LAD disease that was best treated medically at this time and we do recommend stress testing in 6 to 8 weeks to see if this lesion is ischemic. 2. The patient will be on Effient and aspirin for dual antiplatelet therapy. 3. Echocardiogram shows an ejection fraction of 45%. No LifeVest is indicated at this time. 4. The patient remains on dopamine for blood pressure and heart rate support. His blood pressure and heart rate are too low to add Entresto or a beta-maxwell at this time. 5. Will try to stop the dopamine drip today to see how his blood pressure and heart rate responds. If the patient continues to be bradycardic then we may need to consider permanent pacemaker placement during this hospitalization. Will repeat his EKG once the dopamine has been stopped to confirm that his underlying rhythm is just sinus bradycardia and not high degree AV block. 6. His LDL goal is less than 55. His LDL is 121. He has been started on Lipitor. 7. His carotid ultrasound is pending. 8. Further recommendations will be made pending the patient's response to treatment. Thank you for the opportunity to help participate in the care of this patient. All recommendations and orders are per Dr. Burden.
--- NOTE | 2023-08-10 14:39 | ECG_ITS ---
APPROVED REPORT Exam: Resting ECG HR:66 bpm ECG Measurements Heart Rate 66 AXES AL 145 P 59 QRSd 112 QRS -14 QT 364 T -19 QTc 377 Conclusion SINUS RHYTHM INFERIOR MYOCARDIAL INFARCTION , Old, with ongoing lateral changes ABNORMAL ECG UNCONFIRMED REPORT Electronically signed by : Joce Morley MD 08/10/2023 20:13:12
--- NOTE | 2023-08-10 17:11 | CA_ITS ---
APPROVED REPORT EXAM: Comprehensive 2D, Doppler, and color-flow Echocardiogram [employer] Sales Consultant: Nazanin Merrill, JUMA, RVS Ht: 5 ft 6 in Wt: 165lbs BSA: 1.84 BP: 106/66 mmHg Indications: STEMI, CAD, AAA, PAD, HTN, CP, HLD 2D Dimensions Aortic Root 2.80 cm LVEF (Aquino's) 55.90 % Left Atrium 4.21 cm LV Volume 132.40 mL RVID Base (AP4) 3.47 cm (M/F) 2.5-4.1 LA Volume 77.20 mL LVOT 1.71 cm (M/F) 1.5-2.5 LA Volume Index 42.00 mL/m2 (M/F) 16-34 EF AP4 61.50 % EF AP2 50.3 % EF BP 55.9 % GL Strain -20.2 % M-Mode Dimensions RVDd 1.60 cm (0.9-2.6) LVDd 5.32 cm (3.5-5.7) Ao Diam 2.91 cm (2.0-3.7) LVDs 3.80 cm (3.5-5.7) IVSd 1.18 cm (0.6-1.1) PWd 1.18 cm (0.6-1.1) EF (Teich) 54.60% EPSs 0.53 cm FS 28.60% EDV (Teich) 136.50 mL TAPSE 2.17 (<1.7) ESV (Teich) 62.00 mL LV Diastology E Decel Time 172 (160-240 msec) E/A Ratio 1.43 MED E' 9.4 (>= 7 cm/sec) MED A' 10.10 cm/s E'/MED E' Ratio 12.17 (<= 14) LAT E' 13.4 (>= 10 cm/sec) LAT A' 9.30 cm/s E/LAT E' Ratio 8.54 (<= 14) Aortic Valve LVOT Max 112.0 (70-110 cm/s) JAS Index 0.62 cm2/m2 LVOT VTI 20.40 cm AoV Peak [place]ama. 207.0 (50-130 cm/s) AI PHT 381.00 ms AO Mean GR. 9.70 (<5 mmHg) AO VTI 41.2 (18-25 cm) JAS (VTI) 1.14 (2.5-4.5 cm2) Mitral Valve MV E Max Adama. 114.0 (40-130 cm/s) MV A Velocity 80.0 (40-130 cm/s) E/A Ratio 1.43 MV Decel. Time 172 (160-240 ms) MV Mean Gr. 1.60 (<2mmHg) Tricuspid Valve TR P. Velocity 218.00 cm/s RAP Estimate 10.00 mmHg RVSP 29.00 mmHg Left Ventricle The left ventricle is normal size. The left ventricular systolic function is normal. The left ventricular ejection fraction is within the normal range. There is normal left ventricular wall thickness. There is normal LV segmental wall motion. Diastolic function is normal. LVEF is 55%. Right Ventricle The right ventricle is normal size. The right ventricular systolic function is normal. Atria The left atrium is mildly dilated. The right atrium size is normal. There is no Doppler evidence of interatrial shunt. Aortic Valve The aortic valve is mildly thickened. Mild aortic stenosis is present. JAS by continuity equation is 1.9 cm???. Peak velocity 2.1 m/s. Mean AV gradient 10 mmHg. Max AV gradient 17 mmHg. Mild aortic regurgitation. Mitral Valve The mitral valve leaflets are mildly thickened. No evidence of mitral valve stenosis. Moderate mitral regurgitation. Tricuspid Valve The tricuspid valve leaflets are thin and pliable. Mild to moderate tricuspid regurgitation. RVSP is 15-20 mmHg. Pulmonic Valve The pulmonary valve is normal in structure. Trace pulmonic regurgitation. Great Vessels The aortic root is normal in size. The ascending aorta is not well-visualized. IVC is normal in size and collapses >50% with inspiration. Pericardium There is no pericardial effusion. Other Information Study Quality: Fair Conclusion Normal biventricular systolic function. Mild . Mild AI. Mild to moderate TR. Moderate MR. Electronically signed by : Liana Burden MD 08/13/2023 20:35:08
--- NOTE | 2023-08-10 17:12 | CA_ITS ---
FINAL REPORT TECHNIQUE: Color Doppler, duplex Doppler and resendez scale sonography of the bilateral neck arterial vasculature was performed. Velocities were measured in the carotid arteries. Stenosis evaluation based on the validated velocity criteria. CLINICAL HISTORY: ritchie FINDINGS: The peak systolic velocity of the right common carotid artery is 78 cm/s. The peak systolic velocity of the right internal carotid artery is 105 cm/s and end diastolic velocity 26 cm/s. The ICA/CCA ratio is 1.4. A moderate amount of plaque is present. The right external carotid artery is patent. The right vertebral artery is patent with antegrade flow. The peak systolic velocity of the left common carotid artery is 88 cm/s. The peak systolic velocity of the left internal carotid artery is 124 cm/s and end diastolic velocity 34 cm/s. The ICA/CCA ratio is 1.4. A moderate amount of plaque is present. The left external carotid artery is patent.The left vertebral artery is patent with antegrade flow. IMPRESSION: Less than 50% bilateral carotid stenoses. Bilateral patent vertebral arteries with antegrade flow. If indicated, CTA or MRA could further evaluate. Reviewed, Interpreted and Dictated by Lalo Jones III, MD Transcribed by Estephania May Authenticated and [facility]
--- NOTE | 2023-08-10 19:51 | EXP.ACUTE.PN ---
Subjective *Date: 08/10/23 *Time: 13:55 Interval history: Note acute distress. Continues to necessitate oxygen however. On 4 L this morning. No nausea or vomiting. Still on dopamine drip on morning rounds. Denies any chest pain. Medical Exam Vital signs and Labs for Last 24 Hours: Vital Signs Temp Pulse Pulse Resp BP Pulse Ox O2 Del Method 08/10/23 19:00 57 L 29 H 86/53 L 91 L Room Air 08/10/23 19:00 Room Air 08/10/23 18:00 62 27 H 94/65 L 91 L Room Air 08/10/23 17:00 Room Air 08/10/23 17:00 70 19 93/54 L 92 L Room Air 08/10/23 16:00 93 L Room Air 08/10/23 12:00 92 L Nasal Cannula 08/10/23 16:00 70 08/10/23 15:00 Nasal Cannula 08/10/23 16:00 69 20 90/58 L 92 L Nasal Cannula 08/10/23 15:27 99.3 F 08/10/23 14:00 71 22 92/58 L 91 L Nasal Cannula 08/10/23 13:30 69 34 H 87/55 L 92 L Nasal Cannula 08/10/23 13:00 Nasal Cannula 08/10/23 13:00 63 31 H 110/59 L 93 L Nasal Cannula 08/10/23 11:00 Nasal Cannula 08/10/23 12:00 100.9 F H 66 24 85/48 L 93 L Nasal Cannula 08/10/23 12:00 65 08/10/23 11:00 67 31 H 93/53 L 95 Nasal Cannula 08/10/23 08:00 82 08/10/23 10:00 68 26 H 91/53 L 94 L Nasal Cannula 08/10/23 08:00 93 L Nasal Cannula 08/10/23 09:00 Nasal Cannula 08/10/23 09:00 70 17 97/57 L 92 L Nasal Cannula 08/10/23 08:00 67 25 H 90/52 L 93 L Nasal Cannula 08/10/23 07:34 98.7 F 08/10/23 07:00 60 24 113/53 L 87 L Nasal Cannula 08/10/23 06:00 58 L 22 87/54 L 88 L Nasal Cannula 08/10/23 05:00 Nasal Cannula 08/10/23 04:59 64 22 85/55 L 95 Nasal Cannula 08/10/23 04:00 92 L Nasal Cannula 08/10/23 04:00 67 08/10/23 04:00 99.1 F 62 24 88/51 L 96 Nasal Cannula 08/10/23 03:00 56 L 28 H 85/48 L 96 Nasal Cannula 08/10/23 01:00 Nasal Cannula 08/10/23 02:00 61 22 90/53 L 94 L Nasal Cannula 08/09/23 23:45 58 L 85/52 L 93 L Nasal Cannula 08/10/23 01:00 60 24 87/49 L 90 L Nasal Cannula 08/10/23 00:00 93 L Nasal Cannula 08/10/23 00:00 60 08/10/23 00:00 99.3 F 60 26 H 94/63 L 89 L Nasal Cannula 08/09/23 22:45 65 89/63 L 93 L Nasal Cannula 08/09/23 23:00 54 L 24 82/44 L 94 L Nasal Cannula 08/09/23 22:18 57 L 99/70 L 90 L Nasal Cannula 08/09/23 22:00 54 L 24 107/68 L 92 L Nasal Cannula 08/09/23 21:00 61 20 111/60 91 L Nasal Cannula 08/09/23 20:00 58 L 88 L Nasal Cannula 08/09/23 20:00 56 L 08/09/23 20:00 98.5 F 56 L 21 95/50 L 90 L Nasal Cannula O2 Flow Rate 08/10/23 19:00 08/10/23 19:00 08/10/23 18:00 08/10/23 17:00 08/10/23 17:00 08/10/23 16:00 08/10/23 12:00 4 08/10/23 16:00 08/10/23 15:00 4 08/10/23 16:00 4 08/10/23 15:27 08/10/23 14:00 4 08/10/23 13:30 4 08/10/23 13:00 4 08/10/23 13:00 4 08/10/23 11:00 4 08/10/23 12:00 4 08/10/23 12:00 08/10/23 11:00 4 08/10/23 08:00 08/10/23 10:00 4 08/10/23 08:00 4 08/10/23 09:00 4 08/10/23 09:00 4 08/10/23 08:00 4 08/10/23 07:34 08/10/23 07:00 4 08/10/23 06:00 4 08/10/23 05:00 4 08/10/23 04:59 4 08/10/23 04:00 4 08/10/23 04:00 08/10/23 04:00 4 08/10/23 03:00 4 08/10/23 01:00 4 08/10/23 02:00 4 08/09/23 23:45 4 08/10/23 01:00 4 08/10/23 00:00 4 08/10/23 00:00 08/10/23 00:00 4 08/09/23 22:45 4 08/09/23 23:00 4 08/09/23 22:18 4 08/09/23 22:00 3.5 08/09/23 21:00 3.5 08/09/23 20:00 4 08/09/23 20:00 08/09/23 20:00 3.5 Intake and Output 08/10/23 08/10/23 08/10/23 07:59 15:59 23:59 Intake Total 658 / 2038 480 / 2038 900 / 2038 Output Total 150 / 1700 1050 / 1700 500 / 1700 Balance 508 / 338 -570 / 338 400 / 338 Intake: Intake, Oral Amount 658 / 2038 480 / 2038 900 / 2038 Output: Output, Urine Amount 150 / 1700 1050 / 1700 500 / 1700 Other: Number of Voids 1 Weight 74.8 kg Patient Weight 08/10/23 23:59 Weight 74.8 kg Laboratory Results - last 24 hr 08/09/23 20:53: APTT 33.9 08/10/23 05:28: WBC 12.9 H D, RBC 3.74 L, Hgb 12.0 L, Hct 36.5 L, MCV 97.6 H, MCH 32.1 H, MCHC 32.9, RDW 13.7, Plt Count 234, MPV 9.4, Neut % (Auto) 79.6, Lymph % (Auto) 14.3, [place] % (Auto) 5.7, Eos % (Auto) 0.0 L, Baso % (Auto) 0.3, Neut # (Auto) 10.3 H, Lymph # (Auto) 1.9, [place] # (Auto) 0.7, Eos # (Auto) 0.0, Baso # (Auto) 0.0, Sodium 136, Potassium 3.8, Chloride 107, Carbon Dioxide 25, Anion Gap 7.8, BUN 20, Creatinine 0.90, Estimated Creat Clear 82, Estimated GFR 86, Est GFR ( Amer) 104 D, Glucose 116 H D, Calcium 8.2 L, Total Bilirubin 1.0, Direct Bilirubin 0.0, Conjugated Bilirubin 0.0, Indirect Bilirubin 1.0 H, Unconjugated Bilirubin 1.0, AST 114 H D, ALT 35, Alkaline Phosphatase 72, Total Protein 5.9 L, Albumin 3.3 L D, Triglycerides 118, Cholesterol 185, LDL Cholesterol Direct 121.61, VLDL Cholesterol 24, HDL Cholesterol 30 L, Cholesterol/HDL Ratio 6.2 H I & O for Labs for Last 24 Hours: Intake & Output 08/07/23 08/08/23 08/09/23 08/10/23 23:59 23:59 23:59 23:59 Intake Total 228.378 / 994.741 6403 / 2038 Output Total 1750 / 1750 1700 / 1700 Balance -1521.622 / -1521.622 338 / 338 Weight 74.843 kg 74.843 kg 74.8 kg Constitutional: Present no acute distress, average body habitus and chronically ill appearing Head: Present atraumatic and normocephalic ENT: Present normal exam Respiratory: Present normal respiratory effort; Absent rhonchi, wheezes or crackles Cardiac: Present Reg Rate and Rhythm GI: Present normal bowel sounds; Absent tenderness Extremities: Present normal inspection and full ROM Skin: Present intact; Absent erythema Neuro: Present Grossly Intact, alert, awake, oriented x 3 and moves all extremities Assessment and Plan *Assessment and plan (1) ACS (acute coronary syndrome): Status: Acute Category: Medical Code(s): I24.9 - Acute ischemic heart disease, unspecified (2) OVIDIO (acute kidney injury): Status: Acute Category: Medical Code(s): N17.9 - Acute kidney failure, unspecified (3) Hyperlipidemia: Status: Chronic Qualifiers: Hyperlipidemia type: unspecified Qualified Code(s): E78.5 - Hyperlipidemia, unspecified Category: Medical Code(s): E78.5 - Hyperlipidemia, unspecified (4) Coronary arteriosclerosis: Status: Chronic Category: Medical Code(s): I25.10 - Atherosclerotic heart disease of [place] coronary artery without angina pectoris (5) HTN (hypertension): Status: Acute Category: Medical Code(s): I10 - Essential (primary) hypertension (6) Tobacco dependence syndrome: Status: Chronic Category: Medical Code(s): F17.200 - Nicotine dependence, unspecified, uncomplicated Plan 63 year old male presented to [facility] ED for c/o chest pain that started yesterday. PMHX of tobacco abuse, CAD, PAD, hld, and htn. pt states that he was cutting wood when the chest pain started. He states the pain radiated into his back and shoulders and felt that his hearing was impaired. The pain was continued into today so he came to the ED. Upon arrival to the ED his pain radiated into his neck on the left side. He was hypotensive and bradycardic. The pt was given ASA, 1L of LR and 50 mcg of fentanyl for pain. His blood pressure improved with the fluid bolus. His EKG revealed inferior myocardial infarction with elevation in leads 2, 3, and AVF. ED physician consulted Cardiology, please see Dr. Flores's note. The pt was placed on a heparin gtt and received a CTA of his chest that demonstrated no aortic dissection, PE, or aneurysm. His initial troponin was 39.40 and 2nd was 36.30. The ED physician consulted the hospitalist team for further medical management. I admitted the pt to the step down unit. Upon admission he is alert, orientated X 4 and is ambulatory. He reports getting 7 stents in 2017. After arriving to the ICU, he become hypotensive. Patient taken for heart cath yesterday. Continues to have some mild hypotension. Weaned off dopamine today. Will consider resuming for SBP less than 90. Continues to require inpatient management. Cardiology assisting with care. Problems addressed as follows: ACS Late STEMI HLD - Patient taken for heart cath on 08/08. Found to have acute thrombus to the mid to distal dominant right coronary artery. Severe left main stenosis. Successful stenting of the ostium of left main extending into the proximal LAD with severe disease reduced with 1 stent. -Continue Effient 10 mg daily -Patient blood pressure too soft at this time for Entresto or beta-blockers. -Formal echo pending, may need LifeVest prior to discharge home. -Continue diuresis with Lasix 40 mg twice daily - Continue Lipitor 80 mg nightly, -Unclear the etiology of patient's oxygen requirement. Will wean as tolerated. Goal sats greater than 90%. OVIDIO -creatinine of 1.30 on admission. 0.9 this morning with BUN of 20. - repeat CBC, CMP, magnesium for the morning. TOBACCO ABUSE: refused nicotine patch FULL CODE Cardiac diet
[2023-08-11] VITALS (14 sets, daily range): BP systolic 71–107; BP diastolic 38–66; PULSE 53–73; RESP 17–22; TEMP 37.1–37.8; O2SAT 90–97
--- NOTE | 2023-08-11 00:36 | ECG_ITS ---
APPROVED REPORT Exam: Resting ECG HR:64 bpm ECG Measurements Heart Rate 64 AXES PA 128 P 67 QRSd 121 QRS -33 QT 400 T -21 QTc 410 Conclusion SINUS RHYTHM LATERAL MYOCARDIAL INFARCTION , PROBABLY OLD [40+ ms Q WAVE AND/OR ST/T ABNORMALITY IN I/aVL/V5/V6] ACUTE IL UNCONFIRMED REPORT Abnormal Electrocardiogram q waves in inferior leads, likely old IL, no continguous ST elevations Electronically signed by : MAYURI BOYER, 08/11/2023 06:21:18
--- NOTE | 2023-08-11 01:43 | ECG_ITS ---
APPROVED REPORT Exam: Resting ECG HR:64 bpm ECG Measurements Heart Rate 64 AXES IN 142 P 71 QRSd 121 QRS -36 QT 367 T -35 QTc 376 Conclusion SINUS RHYTHM WITH SINUS ARRHYTHMIA ANTEROLATERAL MYOCARDIAL INFARCTION , PROBABLY OLD [40+ ms Q WAVE IN I/aVL/V3-V6] ABNORMAL ECG UNCONFIRMED REPORT Electronically signed by : MAYURI BOYER, 08/11/2023 06:21:54
[2023-08-11] MEDS: HYDROMORPHONE 2MG/ML SYRINGE 1 MG IV (02:26)
[2023-08-11 06:59] LABS: Basophils % 0.4 % (0.1-2.0); Eosinophils % 0.3 % (0.1-12.0); Hematocrit 35.8 % (42.0-52.0); Hemoglobin 11.9 g/dL (14.1-18.0); Lymphocytes # 1.8 K/mm3 (0.7-4.5); Lymphocytes % 19.4 % (10-50); Mean Corpuscular HGB Conc 33.2 g/dL (31.8-35.4); Mean Corpuscular Hemoglobin 32.7 pg (27.0-31.2); Mean Corpuscular Volume 98.6 fl (80-94); Mean Platelet Volume 9.4 fl (7.4-10.4); Monocytes # 0.6 K/mm3 (0.1-1.0); Platelet Count 187 K/mm3 (142-424); Red Blood Count 3.64 M/mm3 (4.60-6.20); Red Cell Distribution Width 13.5 % (11.5-17.5); White Blood Count 9.5 K/mm3 (4.8-10.8)
[2023-08-11 07:03] LABS: Alanine Aminotransferase 29 U/L (12-78); Albumin Level 3.3 g/dl (3.5-5.0); Albumin/Globulin Ratio 1.1 (1.1-1.8); Alkaline Phosphatase 70 U/L (38-126); Anion Gap 6.2 mEq/L (5-15); Aspartate Amino Transferase 63 U/L (17-59); Bilirubin,Total 1.1 mg/dl (0.2-1.3); Blood Urea Nitrogen 23 mg/dl (9-20); Calcium 7.8 mg/dl (8.4-10.2); Carbon Dioxide 26 mmol/L (22.0-30.0); Chloride 105 mmol/L (98-107); Creatinine Clearance Estimated 75 mL/min (50-200); Estimated Glomerular Filt Rate 68 ml/min (>60); GFR (African American) 82 ML/MIN (>60); Globulin 2.9 g/dL (1.3-3.2); Glucose 99 mg/dl (74-100); Potassium 3.2 mmoL/L (3.5-5.1); Sodium 134 mmol/L (136-145); Total Protein,Serum 6.2 g/dl (6.3-8.2)
[2023-08-11 07:35] LABS: Magnesium 2.2 mg/dl (1.6-2.3)
[2023-08-11] MEDS: PRASUGREL 10MG TAB 10 MG PO (09:30)
[2023-08-11] MEDS: ASPIRIN EC 81MG TABLET 81 MG PO (09:30)
[2023-08-11] MEDS: FUROSEMIDE 40MG/4ML VIAL 40 MG IV (09:30)
--- NOTE | 2023-08-11 11:53 | P.DS_ITS ---
General Admission date:: 08/08/23 Discharge date: 08/11/23 HPI HPI HPI: 63 year old male presented to [facility] ED for c/o chest pain that started yesterday. PMHX of tobacco abuse, CAD, PAD, hld, and htn. pt states that he was cutting wood when the chest pain started. He states the pain radiated into his back and shoulders and felt that his hearing was impaired. The pain was continued into today so he came to the ED. Upon arrival to the ED his pain radiated into his neck on the left side. He was hypotensive and bradycardic. The pt was given ASA, 1L of LR and 50 mcg of fentanyl for pain. His blood pressure improved with the fluid bolus. His EKG revealed inferior myocardial infarction with elevation in leads 2, 3, and AVF. ED physician consulted Cardiology, please see Dr. Flores's note. The pt was placed on a heparin gtt and received a CTA of his chest that demonstrated no aortic dissection, PE, or aneurysm. His initial troponin was 39.40 and 2nd was 36.30. The ED physician consulted the hospitalist team for further medical management. I admitted the pt to the step down unit. Upon admission he is alert, orientated X 4 and is ambulatory. He reports getting 7 stents in 2017. After arriving to the ICU, he become hypotensive. The pt was started on an epi gtt with goal MAP 65>. Cardiology will see pt in the morning Hospital Course Hospital Course Hospital Course: 63 year old male presented to [facility] ED for c/o chest pain that started yesterday. PMHX of tobacco abuse, CAD, PAD, hld, and htn. pt states that he was cutting wood when the chest pain started. He states the pain radiated into his back and shoulders and felt that his hearing was impaired. The pain was continued into today so he came to the ED. Upon arrival to the ED his pain radiated into his neck on the left side. He was hypotensive and bradycardic. The pt was given ASA, 1L of LR and 50 mcg of fentanyl for pain. His blood pressure improved with the fluid bolus. His EKG revealed inferior myocardial infarction with elevation in leads 2, 3, and AVF. ED physician consulted Cardiology, please see Dr. Flores's note. The pt was placed on a heparin gtt and received a CTA of his chest that demonstrated no aortic dissection, PE, or aneurysm. His initial troponin was 39.40 and 2nd was 36.30. The ED physician consulted the hospitalist team for further medical management. He was admitted to the stepdown unit for further care. He reports getting 7 stents in 2017. After arriving to the ICU, he become hypotensive. Patient taken for heart cath 08/08. Had some mild hypotension necessitating dopamine. Blood pressure improved and gradually weaned off. Stable for discharge home for further management of his CAD NSTEMI. Plan for close follow-up with cardiology. Problems addressed as follows: ACS Late STEMI HLD - Patient taken for heart cath on 08/08. Found to have acute thrombus to the mid to distal dominant right coronary artery. Severe left main stenosis. Successful stenting of the ostium of left main extending into the proximal LAD with severe disease reduced with 1 stent. Continue Effient 10 mg daily patient weaned to room air. Echo obtained showing normal biventricular systolic function with mild aortic stenosis, AI, TR, MR. Patient blood pressure too soft at this time for Entresto or beta-blockers. See med rec for full details medications on discharge. Follow-up with cardiology in 1 to 2 weeks. OVIDIO: creatinine of 1.30 on admission. Kidney function normalized to BUN of 23 and creatinine of 0.9-1.1 during remainder of hospitalization. TOBACCO ABUSE: refused nicotine patch Exam Data for Last 24 hours Vital signs and Labs for Last 24 Hours: Temp Pulse Resp BP Pulse Ox O2 Del Method O2 Flow Rate 98.8 F 73 17 85/59 L 92 L Room Air 2 08/11/23 11:15 08/11/23 11:15 08/11/23 11:15 08/11/23 11:15 08/11/23 11:15 08/11/23 11:15 08/11/23 08:00 Laboratory Results - last 24 hr 08/11/23 05:26: WBC 9.5 D, RBC 3.64 L, Hgb 11.9 L, Hct 35.8 L, MCV 98.6 H, MCH 32.7 H, MCHC 33.2, RDW 13.5, Plt Count 187, MPV 9.4, Neut % (Auto) 74.0, Lymph % (Auto) 19.4, [place] % (Auto) 6.0, Eos % (Auto) 0.3, Baso % (Auto) 0.4, Neut # (Auto) 7.0, Lymph # (Auto) 1.8, [place] # (Auto) 0.6, Eos # (Auto) 0.0, Baso # (Auto) 0.0, Sodium 134 L, Potassium 3.2 L, Chloride 105, Carbon Dioxide 26, Anion Gap 6.2, BUN 23 H, Creatinine 1.10 D, Estimated Creat Clear 75, Estimated GFR 68, Est GFR ( Amer) 82 D, Glucose 99, Calcium 7.8 L, Magnesium 2.2, Total Bilirubin 1.1, AST 63 H D, ALT 29, Alkaline Phosphatase 70, Total Protein 6.2 L, Albumin 3.3 L, Globulin 2.9, Albumin/Globulin Ratio 1.1 I & O for Last 24 hours: Intake & Output 08/08/23 08/09/23 08/10/23 08/11/23 23:59 23:59 23:59 23:59 Intake Total 228.378 / 394.181 2197 / 2538 789.896 / 789.896 Output Total 1750 / 1750 2200 / 2200 1300 / 1300 Balance -1521.622 / -1521.622 -162 / 338 -510.104 / -510.104 Weight 74.843 kg 74.843 kg 74.8 kg Constitutional Constitutional: no acute distress, average body habitus and chronically ill appearing *Routine HEENT Exam Head: Present normocephalic and atraumatic ENT: Present mucous membranes moist *Routine Neck Exam Neck: Present supple, full ROM and normal carotid upstroke; Absent JVD, carotid bruit or lymphadenopathy *Routine Respiratory Exam Respiratory: Present CTA bilaterally, normal respiratory effort, able to speak in complete sentences and symmetric chest movement *Routine Cardiovascular Exam Cardiovascular: Present RRR, Normal S1 and Normal S2; Absent murmur or gallop *Routine Abdominal Exam Abdominal: Present soft and normoactive bowel sounds; Absent tenderness, dis tended or organomegaly *Routine Rectal Exam Patient deferred: visual exam *Routine Exam Patient deferred: penile exam *Routine Extremities Exam Extremities: Present full ROM, pulses intact and normal capillary refill; Absent cyanosis, clubbing or edema *Routine Skin Exam Skin: Present intact and warm; Absent erythema *Routine Neurological Exam Neurological: Present alert, oriented X3 and CN II-XII intact; Absent sensory deficit or motor deficit Routine Psychiatric Exam Psychiatric: Present normal affect Results Data Completed and Pending Labs on day of discharge: Labs from last 24 hours 08/11/23 05:26 WBC 9.5 D RBC 3.64 L Hgb 11.9 L Hct 35.8 L MCV 98.6 H MCH 32.7 H MCHC 33.2 RDW 13.5 Plt Count 187 MPV 9.4 Neut % (Auto) 74.0 Lymph % (Auto) 19.4 [place] % (Auto) 6.0 Eos % (Auto) 0.3 Baso % (Auto) 0.4 Neut # (Auto) 7.0 Lymph # (Auto) 1.8 [place] # (Auto) 0.6 Eos # (Auto) 0.0 Baso # (Auto) 0.0 Sodium 134 L Potassium 3.2 L Chloride 105 Carbon Dioxide 26 Anion Gap 6.2 BUN 23 H Creatinine 1.10 D Estimated Creat Clear 75 Estimated GFR 68 Est GFR ( Amer) 82 D Glucose 99 Calcium 7.8 L Magnesium 2.2 Total Bilirubin 1.1 AST 63 H D ALT 29 Alkaline Phosphatase 70 Total Protein 6.2 L Albumin 3.3 L Globulin 2.9 Albumin/Globulin Ratio 1.1 DS: Diagnosis Discharge Diagnosis (1) ACS (acute coronary syndrome): Status: Acute Code(s): I24.9 - Acute ischemic heart disease, unspecified (2) OVIDIO (acute kidney injury): Status: Resolved Code(s): N17.9 - Acute kidney failure, unspecified (3) Hyperlipidemia: Status: Chronic Code(s): E78.5 - Hyperlipidemia, unspecified Qualifiers: Hyperlipidemia type: unspecified Qualified Code(s): E78.5 - Hyperlipidemia, unspecified (4) Coronary arteriosclerosis: Status: Chronic Code(s): I25.10 - Atherosclerotic heart disease of [place] coronary artery without angina pectoris (5) HTN (hypertension): Status: Resolved Code(s): I10 - Essential (primary) hypertension (6) Tobacco dependence syndrome: Status: Chronic Code(s): F17.200 - Nicotine dependence, unspecified, uncomplicated Meds Home Medications and Allergies Home Medications Medication Instructions Recorded Confirmed Type aspirin 81 mg tablet,delayed 81 mg PO DAILY 30 days #30 tabs 08/11/23 Rx release atorvastatin 40 mg tablet 40 mg PO HS 30 days #30 tabs 08/11/23 Rx prasugrel 10 mg tablet 10 mg PO DAILY 30 days #30 tabs 08/11/23 Rx nitroglycerin 0.4 mg sublingual 0.4 mg sublingual Q5M PRN chest 08/12/23 Rx tablet pain #25 tabs New Prescriptions to Start Prescriptions: Arash Muniz atorvastatin Jose A,Arash prasugrel Arash Naranjo Allergies Allergy/AdvReac Type Severity Reaction Status Date / Time atorvastatin AdvReac Mild myalgia Verified 10/19/22 09:25 isosorbide AdvReac Unknown Headache Verified 08/09/23 07:42 Discharge Plan Disposition Patient Disposition: Home, Self-Care Condition: Fair Discharge Order Discharge Orders: Discharge Order (Routine); Ordered 08/11/23 Ordered By: Arash Naranjo Follow up Plan Follow up with: Provider,MD Preeti [Primary Care Provider] - Enter time for follow up Zach Burden MD [Staff Physician] - 08/23/23 2:45 pm Prescriptions/Medication Reconciliation: New atorvastatin 40 mg Tablet 40 mg PO HS 30 Days Qty: 30 0RF aspirin 81 mg Tablet,Delayed Release (Dr/Ec) 81 mg PO DAILY 30 Days Qty: 30 0RF prasugrel 10 mg Tablet 10 mg PO DAILY 30 Days Qty: 30 0RF No Action nitroglycerin 0.4 mg tablet, sublingual 0.4 mg sublingual Q5M PRN (Reason: chest pain) Qty: 25 5RF Rx Instructions: do not exceed 3 doses per episode Problem Reconciliation Problems Reviewed?: Yes Patient Discharge Instructions ACTIVITY: Continue current activity DIET: continue same diet Patient Instructions: DI for Angina Providers Primary Care Provider: Provider,Referral Admit Provider: Warren Yeboah Attending Provider: Warren Yeboah
--- NOTE | 2023-08-11 14:35 | P.PN_ITS ---
Subjective Subjective Date: 08/11/23 Time: 12:00 Principal diagnosis: STEMI Interval history: The patient is feeling much better. He denies any chest pain or pressure. He denies any shortness of breath or edema. He denies any fever, chills, nausea, vomiting, diarrhea, PND, or orthopnea. His energy levels have improved. The patient did come in as a completed STEMI. He underwent left cardiac catheterization yesterday and was found to have a thrombosed right coronary artery. He did undergo stenting to the left main. He tolerated this well. The patient was bradycardic overnight and had to be put back on a dopamine drip for a few hours. He remains off of the dopamine drip this morning and his blood pressure is 107 systolic. He states he is asymptomatic with hypotension. He states that he feels really good this morning. Exam Data for Last 24 hours Vital signs and Labs for Last 24 Hours: Temp Pulse Resp BP Pulse Ox O2 Del Method O2 Flow Rate 98.8 F 71 17 100/66 L 92 L Room Air 2 08/11/23 11:15 08/11/23 12:00 08/11/23 11:15 08/11/23 13:04 08/11/23 11:15 08/11/23 12:52 08/11/23 08:00 Laboratory Results - last 24 hr 08/11/23 05:26: WBC 9.5 D, RBC 3.64 L, Hgb 11.9 L, Hct 35.8 L, MCV 98.6 H, MCH 32.7 H, MCHC 33.2, RDW 13.5, Plt Count 187, MPV 9.4, Neut % (Auto) 74.0, Lymph % (Auto) 19.4, [facility] % (Auto) 6.0, Eos % (Auto) 0.3, Baso % (Auto) 0.4, Neut # (Auto) 7.0, Lymph # (Auto) 1.8, [facility] # (Auto) 0.6, Eos # (Auto) 0.0, Baso # (Auto) 0.0, Sodium 134 L, Potassium 3.2 L, Chloride 105, Carbon Dioxide 26, Anion Gap 6.2, BUN 23 H, Creatinine 1.10 D, Estimated Creat Clear 75, Estimated GFR 68, Est GFR ( Amer) 82 D, Glucose 99, Calcium 7.8 L, Magnesium 2.2, Total Bilirubin 1.1, AST 63 H D, ALT 29, Alkaline Phosphatase 70, Total Protein 6.2 L, Albumin 3.3 L, Globulin 2.9, Albumin/Globulin Ratio 1.1 I & O for Last 24 hours: Intake & Output 08/08/23 08/09/23 08/10/23 08/11/23 23:59 23:59 23:59 23:59 Intake Total 228.378 / 027.495 2565 / 2538 1029.896 / 1029.896 Output Total 1750 / 1750 2200 / 2200 1300 / 1300 Balance -1521.622 / -1521.622 -162 / 338 -270.104 / -270.104 Weight 165 lb 165 lb 0.009 oz 164 lb 14.492 oz Constitutional Constitutional: no acute distress and average body habitus *Routine HEENT Exam Head: Present normocephalic and atraumatic ENT: Present mucous membranes moist *Routine Neck Exam Neck: Present supple, full ROM and normal carotid upstroke; Absent JVD, carotid bruit or lymphadenopathy *Routine Respiratory Exam Respiratory: Present CTA bilaterally, normal respiratory effort, able to speak in complete sentences and symmetric chest movement *Routine Cardiovascular Exam Cardiovascular: Present RRR, Normal S1 and Normal S2; Absent murmur or gallop *Routine Abdominal Exam Abdominal: Present soft and normoactive bowel sounds; Absent tenderness, distended or organomegaly *Routine Extremities Exam Extremities: Present full ROM, pulses intact and normal capillary refill; Absent cyanosis, clubbing or edema *Routine Skin Exam Skin: Present intact and warm; Absent erythema *Routine Neurological Exam Neurological: Present alert, oriented X3 and CN II-XII intact; Absent sensory deficit or motor deficit Routine Psychiatric Exam Psychiatric: Present normal affect Progress Note: A&P Assessment and plan (1) ST elevation myocardial infarction (STEMI) of inferior wall: Status: Acute (2) ACS (acute coronary syndrome): Status: Acute (3) Hyperlipidemia: Status: Chronic (4) Coronary arteriosclerosis: Status: Chronic (5) HTN (hypertension): Status: Acute (6) Tobacco dependence syndrome: Status: Chronic Assessment and Plan Assessment and Plan for All Diagnoses:: Plan: 1. The patient presented to the emergency department with chest pain and pressure. The patient was found to have a late STEMI. He had already Q-waved out from his STEMI so he was not taken emergently to the [facility]. However he did undergo a left cardiac catheterization the following morning and was found to have an active thrombus to the right coronary artery and the artery was completely thrombosed with no collateralization or NATALIE flow. The patient did have stenting to severe disease to the left main artery. He had persistent severe mid LAD disease that was best treated medically at this time and we do recommend stress testing in 6 to 8 weeks to see if this lesion is ischemic. 2. The patient will be on Effient and aspirin for dual antiplatelet therapy. 3. Echocardiogram shows an ejection fraction of 45%. No LifeVest is indicated at this time. 4. The patient's blood pressure did get low through the night and he had to be restarted on dopamine but then was subsequently stopped a few hours later. He remains off of dopamine at this time and his blood pressure is 107 systolic. His blood pressure is well-controlled. 5. His LDL goal is less than 55. His LDL is 121. He has been started on Lipitor. 6. His carotid ultrasound shows bilateral carotid artery stenosis less than 50% bilaterally. 7. The patient is stable for discharge home today from a cardiac standpoint as long as his systolic blood pressure is 90 or greater on 2 separate blood pressure checks. The patient will need to be discharged on the following cardiac medications: Aspirin 81 mg daily, Effient 10 mg daily, Lipitor 80 mg p.o. nightly. Thank you for the opportunity to help participate in the care of this patient. All recommendations and orders are per Dr. Burden.
--- NOTE | 2023-08-12 14:45 | CARE MANAGER ---
Contacted patient related to hospital discharge. He states he is feeling better. He is aware of follow up appointments and denies any questions or concerns. BIJAN Caraballo
== END 2023-08-11 14:43 | disposition home or self-care (01) | DRG 322 ==
LOC: ER 22:38 → ICU 23:15
PROVIDERS: Internal Medicine; Internal Medicine Adolescent Medicine; Nurse Practitioner Critical Care Medicine; Nurse Practitioner Family; Physician Assistant; Admitting Provider Internal Medicine; Emergency Provider Emergency Medicine; Visit Provider Internal Medicine
PROC: 027034Z Dilation of Coronary Artery, One Artery with Drug-eluting Intraluminal Device, Percutaneous Approach (ICD-10-PCS; principal; 2023-08-09 14:00)
DX: I21.19 ST elevation (STEMI) myocardial infarction involving other coronary artery of inferior wall (principal); N17.9 Acute kidney failure, unspecified; I25.10 Atherosclerotic heart disease of native coronary artery without angina pectoris; I71.43 Infrarenal abdominal aortic aneurysm, without rupture; I10 Essential (primary) hypertension; I24.9 Acute ischemic heart disease, unspecified; E78.5 Hyperlipidemia, unspecified; F17.210 Nicotine dependence, cigarettes, uncomplicated; K44.9 Diaphragmatic hernia without obstruction or gangrene; I73.9 Peripheral vascular disease, unspecified; Z79.899 Other long term (current) drug therapy; Z79.82 Long term (current) use of aspirin; Z79.02 Long term (current) use of antithrombotics/antiplatelets; Z88.8 Allergy status to other drugs, medicaments and biological substances
CPT/HCPCS: 36415; 71045; 71275; 74176; 80048; 80053; 80061; 80076; 83690; 83735; 84484; 85007; 85025; 85347; 85378; 85610; 85730; 92941; 93005; 93306; 93458; 93571; 93572; 93880; 94640; 99152; 99153; 99291; C1725; C1769; C1876; C9606; J1171; J1644; Q9967